=== PATIENT | male | born 1945 | race Caucasian/White ===

== ENCOUNTER 2022-11-21 19:37 | Emergency (ER) | payer MEDICARE, OTHER, SELFPAY ==
[2022-11-21 20:09] VITALS: BP 103/67; PULSE 59; RESP 14; TEMP 36.6; O2SAT 97; BMI 26.4
--- NOTE | 2022-11-21 20:30 | ED.GENADUL1 ---
Documented by User: KG Franklin 11/21/22 20:33 HPI - General Adult General Chief complaint: Skin/Abscess/Foreign Body Stated complaint: UPPER INJURY LEFT ARM Time Seen by Provider: 11/21/22 20:21 Source: patient Mode of arrival: walk-in History of Present Illness HPI narrative: patient is a pleasant 77-year-old male presents to the emergency department for a skin tear to the left posterior elbow. He and his are concerned he needed a tetanus update. They cannot remember when he would've had a tetanus update most recently. Patient's left elbow was pinned next to a feeder and he sustained a superficial skin tear/avulsion. He has no pain to the elbow and is able to move the arm with no difficulty. No bleeding at this time. No other associated injuries. Related Data Allergies Allergy/AdvReac Type Severity Reaction Status Date / Time No Known Drug Allergies Allergy Verified 11/21/22 20:09 Review of Systems ROS Constitutional Denies: fever or chills Ears, nose, mouth, and throat Denies: throat pain Cardiovascular Denies: chest pain Respiratory Denies: cough Gastrointestinal Denies: nausea or vomiting Integumentary/Breast Denies: rash Hematologic/Lymphatic Denies: easy bruising Exam Narrative Exam Narrative: Gen.: Awake, alert, in no distress Head: Normocephalic, atraumatic ENT: Moist mucous membranes Respiratory: No respiratory distress Extremities: Moves extremities equally, no bony tenderness of the left elbow with skin tear noted below. Psych: Normal mood and affect Neuro: No focal neuro deficit Skin: Warm, dry, superficial skin avulsion/skin tear to the left posterior elbow. No active bleeding. No deep laceration noted Constitutional Vital Signs, click to edit/add: Last Vital Signs Temp 97.8 F 11/21/22 20:09 Pulse 59 L 11/21/22 20:09 Resp 14 11/21/22 20:09 BP 103/67 11/21/22 20:09 Pulse Ox 97 11/21/22 20:09 O2 Del Method Room Air 11/21/22 20:19 Course Vital Signs Vital signs: Vital Signs Temperature 97.8 F 11/21/22 20:09 Pulse Rate 59 L 11/21/22 20:09 Respiratory Rate 14 11/21/22 20:09 Blood Pressure 103/67 11/21/22 20:09 Pulse Oximetry 97 08/01/23 20:09 Oxygen Delivery Method Room Air 11/21/22 20:09 Temperature 97.8 F 11/21/22 20:09 Pulse Rate 59 L 11/21/22 20:09 Respiratory Rate 14 11/21/22 20:09 Blood Pressure 103/67 11/21/22 20:09 Pulse Oximetry 97 11/21/22 20:09 Oxygen Delivery Method Room Air 11/21/22 20:19 Medical Decision Making MDM Narrative Medical decision making narrative: exam is consistent with skin tear, tetanus is updated and the area was dressed with bacitracin and dressing. Wound care instructions given for home.follow-up with PCP and return to the Emergency Room if symptoms change or worsen Medical Records Medical records reviewed: Yes I reviewed the patient's medical records Discharge Plan Discharge Chief Complaint: Skin/Abscess/Foreign Body Clinical Impression: Skin tear Patient Disposition: Home, Self-Care Time of Disposition Decision: 20:23 Condition: Good Mode of Transportation: Private Vehicle Instructions: Acute Wounds (ED) Stand Alone Forms: Portal Instructions Referrals: Licha Gomez MD [Primary Care Provider] - 1 week Discharge Date/Time: 11/21/22 20:47 Documented by User: Paige Woodard MD 11/21/22 23:15 HPI - General Adult General Chief complaint: Skin/Abscess/Foreign Body Stated complaint: UPPER INJURY LEFT ARM Time Seen by Provider: 11/21/22 20:21 Related Data Allergies Allergy/AdvReac Type Severity Reaction Status Date / Time No Known Drug Allergies Allergy Verified 11/21/22 20:09 Exam Constitutional Vital Signs, click to edit/add: Last Vital Signs Temp 97.8 F 11/21/22 20:09 Pulse 59 L 11/21/22 20:09 Resp 14 11/21/22 20:09 BP 103/67 11/21/22 20:09 Pulse Ox 97 11/21/22 20:09 O2 Del Method Room Air 11/21/22 20:19 Course Vital Signs Vital signs: Vital Signs Temperature 97.8 F 11/21/22 20:09 Pulse Rate 59 L 11/21/22 20:09 Respiratory Rate 14 11/21/22 20:09 Blood Pressure 103/67 11/21/22 20:09 Pulse Oximetry 97 11/21/22 20:09 Oxygen Delivery Method Room Air 11/21/22 20:09 Temperature 97.8 F 11/21/22 20:09 Pulse Rate 59 L 11/21/22 20:09 Respiratory Rate 14 11/21/22 20:09 Blood Pressure 103/67 11/21/22 20:09 Pulse Oximetry 97 11/21/22 20:09 Oxygen Delivery Method Room Air 11/21/22 20:19 Medical Decision Making MDM Narrative Medical decision making narrative: exam is consistent with skin tear, tetanus is updated and the area was dressed with bacitracin and dressing. Wound care instructions given for home.follow-up with PCP and return to the Emergency Room if symptoms change or worsen Attending physician attestation I have reviewed the mid-level documentation, agree with the documentation, medical decision making and treatment plan as outlined by the mid-level provider. Discharge Plan Discharge Chief Complaint: Skin/Abscess/Foreign Body Clinical Impression: Skin tear Patient Disposition: Home, Self-Care Time of Disposition Decision: 20:23 Condition: Good Mode of Transportation: Private Vehicle Instructions: Acute Wounds (ED) Stand Alone Forms: Portal Instructions Referrals: Licha Gomez MD [Primary Care Provider] - 1 week Discharge Date/Time: 11/21/22 20:47
[2022-11-21] MEDS: ADACEL DIPH,PERTUSS(ACELL),TET VAC/PF 0.5 ML ADULT SYRINGE IM (20:35)
[2022-11-21] MEDS: BACITRACIN 0.9 GM PACKET 1 PACKET TOPICAL (20:36)
== END 2022-11-21 20:47 | disposition home or self-care (01) ==
PROVIDERS: Emergency Provider Emergency Medicine; PCP Specialist
DX: S51.012A Laceration without foreign body of left elbow, initial encounter (principal); W23.0XXA Caught, crushed, jammed, or pinched between moving objects, initial encounter; Z23 Encounter for immunization
CPT/HCPCS: 90471; 90715; 99282

== ENCOUNTER 2023-01-13 06:38 | Outpatient (OUT) | payer MEDICARE, OTHER, SELFPAY ==
[2023-01-13 09:20] LABS: Prostate Specific Antigen Scrn 1.58 ng/mL (<=4.00)
== END 2023-01-13 06:39 | disposition home or self-care (01) ==
LOC: LAB 06:41
PROVIDERS: PCP Specialist; Visit Provider Urology
DX: N40.1 Benign prostatic hyperplasia with lower urinary tract symptoms (principal); R39.12 Poor urinary stream; R35.1 Nocturia; N32.0 Bladder-neck obstruction; Z80.42 Family history of malignant neoplasm of prostate
CPT/HCPCS: 36415; 84153; G0103

== ENCOUNTER 2023-03-19 13:47 | Outpatient (OUT) | payer MEDICARE, OTHER, SELFPAY ==
--- NOTE | 2023-03-19 13:56 | XR_ITS ---
The [address] [address] Patient Name: ENA VICK MRN: [id number] date: 1945 Sex: M Assigned Patient Location: RAD Current Patient Location: RAD Accession/Order Number: [id number] Exam Date: 03/19/2023 14:05 Report Date: 03/19/2023 18:40 At the request of: ANDREA BATEMAN Procedure: XR hip RT min 2V EXAM: Right hip HISTORY: . Right Hip Pain, Low Back Pain . COMPARISON: None. TECHNIQUE: 2 views FINDINGS: No fracture or dislocation of the right hip is noted. Hip joint is unremarkable. Surrounding soft tissues are unremarkable. XR/XR hip RT min 2V IMPRESSION: Negative right hip. Electronically authenticated by: MANUEL RUDOLPH Date: 03/19/2023 18:40
--- NOTE | 2023-03-19 13:56 | XR_ITS ---
[address] [address] Patient Name: ENA VICK MRN: [id number] date: 1945 Sex: M Assigned Patient Location: [facility] Current Patient Location: Accession/Order Number: [id number] Exam Date: 03/19/2023 14:05 Report Date: 03/20/2023 22:11 At the request of: ANDREA BATEMAN Procedure: XR lumbar spine 6V w bending Exam: Radiographs: XR lumbar spine 6V w bending Reason for exam: Low Back Pain, Right Hip Pain Comparison: None XR/XR lumbar spine 6V w bending IMPRESSION: L2 superior endplate compression fracture with mild height loss is likely chronic. Grade 1 retrolisthesis of L4 on L5. Minimal grade 1 retrolisthesis of L1 on L2 and L2 on L3. Multilevel disc space narrowing. No instability on flexion/extension views. Degenerative changes in the lumbar spine with multilevel disc space narrowing. Remainder unremarkable. Electronically authenticated by: BARBARA ARMSTRONG Date: 03/20/2023 22:11
== END 2023-03-19 13:48 | disposition home or self-care (01) ==
LOC: RAD 13:49
PROVIDERS: PCP Nurse Practitioner; Visit Provider Nurse Practitioner
DX: M54.50 Low back pain, unspecified (principal); M25.551 Pain in right hip; M51.36 Other intervertebral disc degeneration, lumbar region
CPT/HCPCS: 72114; 73502

== ENCOUNTER 2023-03-23 10:16 | Outpatient (RCR) | payer MEDICARE, OTHER, SELFPAY | END 2023-04-17 11:30 | disposition home or self-care (01) | LOC: PT 10:16 | PROVIDERS: PCP Nurse Practitioner; Visit Provider Nurse Practitioner | DX: M48.061 Spinal stenosis, lumbar region without neurogenic claudication (principal); M54.50 Low back pain, unspecified; M25.551 Pain in right hip | CPT/HCPCS: 97010; 97035; 97110; 97112; 97140; 97161; G0283 ==

== ENCOUNTER 2024-01-16 10:48 | Outpatient (OUT) | payer MEDICARE, OTHER, SELFPAY ==
--- OUTSIDE RECORDS SUMMARY | 2024-01-16 11:05 | XMS_ITS | CCD ---
Author Organization [facility] Care Team Providers Care [place] Department Head Name Role Phone Criss Huizar Unavailable NydiaMauricio novak Unavailable FLANAGAN ., DR FREEMAN Admitting Unavailable FLANAGAN ., DR FREEMAN Attending Unavailable PATRICIO ., DR KEEGAN Jennings Primary Care Unavailable FLANAGAN ., DR FREEMAN Consulting Unavailable PATRICIO ., DR KEEGAN Jennings Admitting Unavailable PATRICIO ., DR KEEGAN Jennings Attending Unavailable PATRICIO ., DR KEEGAN Jennings Primary Care Unavailable PATRICIO ., DR KEEGAN Jennings Consulting Unavailable PATRICIO ., DR KEEGAN Jennings Admitting Unavailable PATRICIO ., DR KEEGAN Jennings Attending Unavailable PATRICIO ., DR KEEGAN Jennings Primary Care Unavailable PATRICIO ., DR KEEGAN Jennings Consulting Unavailable PATRICIO ., DR KEEGAN Jennings Primary Care Unavailable GUILHERME HOBSON Admitting Unavailable GUILHERME HOBSON Attending Unavailable GUILHERME HOBSON Consulting Unavailable SHE KING Consulting Unavailable TARA CROCKETT Consulting Unavailable AA, MAICO Consulting Unavailable PATRICIO ., DR KEEGAN Jennings Admitting Unavailable PATRICIO ., DR KEEGAN Jennings Attending Unavailable PATRICIO ., DR KEEGAN Jennings Primary Care Unavailable PATRICIO ., DR KEEGAN Jennings Consulting Unavailable PATRICIO ., DR KEEGAN Jennings Admitting Unavailable PATRICIO ., DR KEEGAN Jennings Attending Unavailable PATRICIO ., DR KEEGAN Jennings Primary Care Unavailable PATRICIO ., DR KEEGAN Jennings Consulting Unavailable NIYA DUGAN Attending Unavailable NIYA DUGAN Attending Unavailable Yesenia Kwong Attending Unavailable Yesenia Kwong Attending Unavailable Medications Current Medications Medication Drug Class(es) Dates Sig (Normalized) Sig (Original) Aluminum Hydroxide / magnesium carbonate (1 source) Gaviscon Active atorvastatin 40 mg oral tablet (3 sources) HMG-CoA Reductase Inhibitor take 1 tablet by mouth every twenty-four hours Lipitor 40 MG 1 tablet Orally Once a day Active Atorvastatin Adam cium Not-Taking Famotidine (1 source) Histamine-2 Receptor Antagonist Famotidine Active Ibuprofen (2 sources) Nonsteroidal Anti-inflammatory Drug Ibuprofen Active Lipo-Flavonoid Plus (2 sources) Lipo-Flavonoid P gerardo Active Melatonin (2 sources) Melatonin Active omeprazole 40 mg delayed release oral capsule (1 source) Proton Pump Inhibitor take 1 capsule by mouth once daily Omeprazole 40 MG 1 capsule 30 minutes before morning meal Orally Once a day Active Probiotic (2 sources) Probiotic Active Problems Active Problems Problem Classification Problem Date Documented Date Episodic/Chronic Abdominal hernia (2 sources) Hiatal hernia; Translations: [Diaphragmatic hernia without obstruction or gangrene] Onset: 10-27-19 Resolved : 10-27-19 Episodic Disorders of lipid metabolism (1 source) Pure hypercholesterolemia, unspecified; Translations: [PURE HYPERCHOLESTEROLEMIA UNSPEC] Onset: 11-03-19 Chronic Esophageal disorders (4 sources) Gastroesophageal reflux disease; Translations: [Gastro-esophageal reflux disease without esophagitis] Onset: 10-27-19 Resolved : 10-27-19 Chronic Gastritis and duodenitis (1 source) Atrophic gastritis; Translations: [Unspecified chronic gastritis without bleeding] Chronic Hyperplasia of prostate (5 sources) Benign prostatic hyperplasia with lower urinary tract symptoms; Translations: [Benign prostatic hyperplasia without lower urinary tract symptoms] Onset: 11-03-19 Chronic Other diseases of bladder and urethra (1 source) Bladder-neck obstruction; Translations: [BLADDER-NECK OBSTRUCTION] Onset: 01-09-20 Chronic Other gastrointestinal disorders (2 sources) Diarrhea; Translations: [Diarrhea, unspecified] Episodic Other gastrointestinal disorders (2 sources) Altered bowel function; Translations: [Change in bowel habit] Episodic Other gastrointestinal disorders (2 sources) Incontinence of feces; Translations: [Full incontinence of feces] Episodic Unclassified (2 sources) Patient encounter status; Translations: [Encounter for health counseling related to travel] Unclassified (1 source) CONTACT W/AND (SUSP) EXPOS COVID-19; Translations: [CONTACT W/AND (SUSP) EXPOS COVID-19] Onset: 11-03-19 Past or Other Problems Problem Classification Problem Date Documented Da te Episodic/Chronic Bacterial infection; unspecified site (1 source) Other specified bacterial agents as the cause of diseases classified elsewhere; Translations: [OTH SPEC BACTERIAL DZ CLASS ELSW] Onset: 11-28-2021 Episodic Deficiency and other anemia (1 source) Anemia, unspecified; Translations: [ANEMIA UNSPECIFIED] Onset: 11-02-2021 Episodic Genitourinary symptoms and ill-defined conditions (2 sources) Poor urinary stream; Translations: [Nocturia] Onset: 01-08-2022 Episodic Intestinal infection (4 sources) Enterocolitis due to Clostridium difficile, not specified as recurrent; Translations: [ENTROCOLIT DT C DIF NOT SPEC REC] Onset: 11-02-2021 Episodic Nonspecific chest pain (1 source) Other chest pain Onset: 10-26-2021 Resolved: 10-26-2021 Episodic Other aftercare (1 source) Other termite exterminator (current) drug therapy; Translations: [OTH AUTOMATION CONTROL INTEGRATOR CURRENT DRUG THERAPY] Onset: 11-02-2021 Episodic Other gastrointestinal disorders (3 sources) Diarrhea, unspecified; Translations: [DIARRHEA UNSPECIFIED] Onset: 10-28-2021 Episodic Other infections; including parasitic (4 sources) Other infectious disease; Translations: [OTHER INFECTIOUS DISEASE] Onset: 11-23-2021 Episodic Screening and history of mental health and substance abuse codes (1 source) Personal history of nicotine dependence; Translations: [PERSONAL HISTORY OF NICOTINE DEPEND] Onset: 11-02-2021 Episodic Unclassified (1 source) Encounter for health counseling related to travel Onset: 10-05-2021 Resolved: 10-05-2021 Results Test Name Value Interpretation Reference Range Facility Discharge Note - PTon 2022 Discharge Note - PT [id number]#1.00T IFF [facility] Plan of Care - PT/OT/Speecho n 03-26-2023 Plan of Care - PT/OT/Speech [id number]#1.00T IFF [facility] Ambulatory Visit Summaryon 1 05-19-2022 Ambulatory Visit Summary NAVATE Natalio :1945 Visit Date:03/19/2023 Ambulatory Visit Instructions Your Care Team Attending Physician - Yesenia Juarez Primary Care Physician - Yesenia Juarez This Is Your Medications List atorvastatin (atorvastatin 20 mg Tab) omeprazole (omeprazole 40 mg Cap-DR) Contact prescribing physician if questions or concerns aluminum hydroxide-magnesium trisilicate (Gaviscon) ibuprofen melatonin multivitamin (Lipoflavonoid) Procedures Performed Transurethral incision of male bladder neck (08/31/2016), Cystoscopy (08/05/2015), TRUS - Transrectal ultrasonography (07/29/2013), Cystoscopy (05/26/2009), TURP - Transurethral resection of prostate (06/21/2005), Cystoscopy (05/24/2004), TRUS - Transrectal ultrasonography (03/23/2004), Colonoscopy, History of hernia repair. Discharge Vitals Temperature (Oral) 37.8 ?C Heart Rate (Peripheral) 67 Respiratory Rate 16 Blood Pressure 152/88 Height 175 cm Height 69 in Weight 80 kg Weight 176 lb BMI 26.12 What to do next Scheduled Follow-Up Appointments Sunday 8:30 AM EDT With: NIYA DUGAN PA-C Where: [facility] Family Medicine Office/Clini c Noteon 03-19-2023 Family Medicine Office/Clinic Note HPI Staff Pt is a 77 yo male presenting for right hip pain today. Pain characteristics: Right hip pain Pain location: R hip Intensity:_ Onset: on and off, getting worse. Medication used: OTC pain meds. Opioids prescribed: Medication agreement UTD: _ Urine drug screen performed:_ History of Present Illness pt presents today with right hip, lower right back pain with pain down right leg Review of Systems PHQ Score Initial Depression Screen Score: 0 SCORE ROS - Provider Constitutional: no fever, no chills, no sweats, no fatigue Respiratory: no shortness of breath, no cough, no orthopnea, no wheezing. Cardiovascular: no chest pain, no palpitations, no edema. Neurologic: no headache, no dizziness, no numbness, no weakness. right low back hamilton that shoots pain around hip and down right leg Physical Exam Vitals & Measurements T: 37.8 ?C(Oral) HR: 67(Peripheral) RR: 16 BP: 152/88 SpO2: 98% HT: 69 in HT: 175 cm WT: 80 kg WT: 176 lb BMI: 26.12 General: alert, no acute distress ENMT: oral mucosa moist, no pharyngeal erythema or exudate Cardiovascular: regular rate and rhythm, normal peripheral perfusion Respiratory: Lungs CTA, respirations non labored Extremities: no deformity, no trauma Neurological: oriented x 4, LOC appropriate for age, CN II-XII intact, motor strength equal & normal bilaterally, speech normal Assessment/Plan 1. Right hip pain (M25.551: Pain in right hip) pt states he has had some mild hip pain for a few moths but over the weekend the pain has worsened which is causing him to limp. will order hip and lower back x ray. will order medrol dose pack and anti-inflammatory. if no improvement in 2 weeks pt will notify provider for referral to PT. pt also encouraged to use heat to the area when it is severe. will notify pt of xray results. order provided for TBH. all questions answered. RTC as needed Ordered: meloxicam, 7.5 mg = 1 tab(s), Oral, Daily, # 30 tab(s), Refills(s) 0, Pharmacy: [facility]/pharmacy #[id number], 175, cm, 03/19/23 12:49:00 EST, Height/Length Dosing, 80, kg, 03/19/23 12:49:00 EST, Weight Dosing methylPREDNISolone, = 1 packet(s), Oral, As Directed, as directed on package labeling, X 6 day(s), # 21 tab(s), Refills(s) 0, Pharmacy: [facility]/pharmacy #[id number], 175, cm, 03/19/23 12:49:00 EST, Height/Length Dosing, 80, kg, 03/19/23 12:49:00 EST, Weight Dosing 2. Back pain with right-sided sciatica (M54.31: Sciatica, right side) pt having lower right back pain that radiates around the hip and down front of right leg. Ordered: meloxicam, 7.5 mg = 1 tab(s), Oral, Daily, # 30 tab(s), Refills(s) 0, Pharmacy: [facility]/pharmacy #[id number], 175, cm, 03/19/23 12:49:00 EST, Height/Length Dosing, 80, kg, 03/19/23 12:49:00 EST, Weight Dosing methylPREDNISolone, = 1 packet(s), Oral, As Directed, as directed on package labeling, X 6 day(s), # 21 tab(s), Refills(s) 0, [id number] 175, cm, 03/19/23 12:49:00 EST, Height/Length Dosing, 80, kg, 03/19/23 12:49:00 EST, Weight Dosing 3. BMI 26.0-26.9,adult (Z68.26: Body mass index [BMI] 26.0-26.9, adult) BMI education complete Ordered: triamcinolone topical, 1 rob, Topical, TID, 30 gram, [facility](s) 0[id number], cm, 02/05/23 10:42:00 EDT, Height/Length Dosing, 82.3, kg, 02/05/23 10:42:00 EDT, Weight Dosing Orders: atorvastatin, 20 mg = 1 tab(s), Oral, Daily, # 90 tab(s), Refills(s) 1, [id number] 175, cm, 02/05/23 10:42:00 EDT, Height/Length Dosing, 82.3, kg, 02/05/23 10:42:00 EDT, Weight Dosing omeprazole, 40 mg = 1 cap(s), Oral, Daily, X 90 day(s), # 90 cap(s), Refills(s) 3, [id number] 175, cm, 02/05/23 10:42:00 EDT, Height/Length Dosing, 82.3, kg, 02/05/23 10:42:00 EDT, Weight Dosing Follow-up No qualifying data available Problem List/Past Medical History Ongoing Abdominal hernia Back pain with right-sided sciatica Bladder neck obstruction BMI 26.0-26.9,adult BPH with urinary obstruction Contact dermatitis Family history of prostate cancer Gastroesophageal reflux Hematuria Nocturia Organic impotence Pain of back and right lower extremity Prostate nodule Right hip pain Weak urine stream Historical No qualifying data Procedure/Surgical History Transurethral incision of male bladder neck (08/31/2016), Cystoscopy (08/05/2015), TRUS - Transrectal ultrasonography (07/29/2013), Cystoscopy (05/26/2009), TURP - Transurethral resection of prostate (06/21/2005), Cystoscopy (05/24/2004), TRUS - Transrectal ultrasonography (03/23/2004), Colonoscopy, History of hernia repair. Medications atorvastatin 20 mg Tab, 20 mg= 1 tab(s), Oral, Daily, 1 refills Gaviscon, Chewed, QIDPCHS ibuprofen Lipoflavonoid, Oral, Daily Medrol 4 mg Tab, 1 packet(s), Oral, As Directed melatonin, Once a day (at bedtime) meloxicam 7.5 mg Tab, 7.5 mg= 1 tab(s), Oral, Daily omeprazole 40 mg Cap-DR, 40 mg= 1 cap(s), Oral, Daily, 3 refills Allergies No Known Allergies Social History Tobacco F (more content not included)... Normal [facility] Comment on above: Result Comment: Elec tronically Signed By: Yesenia Juarez\.br\Date and Time Signed: 03/19/23 13:10 EST Ambulatory Visit Summaryon 1 Ambulatory Visit Summary TE CURTIS Natalio :1945 Visit Date:02/05/2023 Ambulatory Visit Instructions Your Diagnosis Contact dermatitis BMI 26.0-26.9,adult Non-smoker Your Care Team Attending Physician - Yesenia Juarez Primary Care Physician - Yesenia Juarez This Is Your Medications List aluminum hydroxide-magnesium trisilicate (Gaviscon) atorvastatin (atorvastatin 20 mg Tab) ibuprofen melatonin multivitamin (Lipoflavonoid) omeprazole (omeprazole 40 mg Cap-DR) triamcinolone topical (triamcinolone Top 0.1% Crm 15 gram) Procedures Performed Transurethral incision of male bladder neck (08/31/2016), Cystoscopy (08/05/2015), TRUS - Transrectal ultrasonography (07/29/2013), Cystoscopy (05/26/2009), TURP - Transurethral resection of prostate (06/21/2005), Cystoscopy (05/24/2004), TRUS - Transrectal ultrasonography (03/23/2004), Colonoscopy, History of hernia repair. Discharge Vitals Heart Rate (Peripheral) 62 Respiratory Rate 18 Blood Pressure 126/78 Height 175 cm Height 69 in Weight 82.3 kg Weight 181.06 lb BMI 26.87 What to do next Scheduled Follow-Up Appointments Sunday 8:30 AM EDT With: RITCHIE RODRIGUEZ, NIYA Jennings Where: [facility] [place] 02-05-2023 Consent [id number] IFF [facility] Family Medicine Office/Clini c Noteon 02-05-2023 Family Medicine Office/Clinic Note HPI Staff Te is a 77 year old male presenting with rash Duration: Location: bilateral upper arms and back Description: red/dry, seems worse after shower Rash symptoms: c/o itching denies burning/pain OTC: Has used rubbing alcohol a few times History of Present Illness pt presents today with dry scaly rash in upper arms shoulder and upper back Review of Systems PHQ Score Initial Depression Screen Score: 0 ROS - Provider Constitutional: no fever, no chills, no sweats, no fatigue Respiratory: no shortness of breath, no cough, no orthopnea, no wheezing. Cardiovascular: no chest pain, no palpitations, no edema. Neurologic: no headache, no dizziness, no numbness, no weakness. skin: rash on upper boday for 2 weeks Physical Exam Vitals & Measurements HR: 62(Peripheral) RR: 18 BP: 126/78 SpO2: 96% HT: 69 in HT: 175 cm WT: 82.3 kg WT: 181.06 lb BMI: 26.87 General: alert, no acute distress ENMT: oral mucosa moist, no pharyngeal erythema or exudate Cardiovascular: regular rate and rhythm, normal peripheral perfusion Respiratory: Lungs CTA, respirations non labored Extremities: no deformity, no trauma Neurological: oriented x 4, LOC appropriate for age, CN II-XII intact, motor strength equal & normal bilaterally, speech normal red, scaly rash upper arms, shoulders and upper back Assessment/Plan 1. Contact dermatitis (L25.9: Unspecified contact dermatitis, unspecified cause) pt has several dry, scaly flaky areas on upper arms, shoulders and back. pt states his changed laundry detergent a few weeks ago and this has been going on for about 2 weeks. it is itchy. will give kenalog injection in office today. will also order steroid cream. all questions answered. RTC as needed Ordered: triamcinolone, 40 mg = 1 mL, Injection, IntraMuscular, Once, Stop date 02/05/23 12:12:00 EDT, Routine, Start date 02/05/23 12:12:00 EDT, 02/05/23 12:12:00 EDT triamcinolone topical, 1 rob, Topical, TID, 30 gram, Refill(s) 0, [id number], 175, cm, 02/05/23 10:42:00 EDT, Height/Length Dosing, 82.3, kg, 02/05/23 10:42:00 EDT, Weight Dosing 2. BMI 26.0-26.9,adult (Z68.26: Body mass index [BMI] 26.0-26.9, adult) BMI education complete Ordered: triamcinolone, 40 mg = 1 mL, Injection, IntraMuscular, Once, Stop date 02/05/23 12:12:00 EDT, Routine, Start date 02/05/23 12:12:00 EDT, 02/05/23 12:12:00 EDT triamcinolone topical, 1 rob, Topical, TID, 30 gram, Refill(s) 0, [facility]/pharmacy #[id number], 175, cm, 02/05/23 10:42:00 EDT, Height/Length Dosing, 82.3, kg, 02/05/23 10:42:00 EDT, Weight Dosing 3. Non-smoker (Z78.9: Other specified health status) continue not smoking Ordered: triamcinolone, 40 mg = 1 mL, Injection, IntraMuscular, Once, Stop date 02/05/23 12:12:00 EDT, Routine, Start date 02/05/23 12:12:00 EDT, 02/05/23 12:12:00 EDT triamcinolone topical, 1 rob, Topical, TID, 30 gram, Refill(s) 0, [id number], 175, cm, 02/05/23 10:42:00 EDT, Height/Length Dosing, 82.3, kg, 02/05/23 10:42:00 EDT, Weight Dosing Follow-up No qualifying data available Problem List/Past Medical History Ongoing Abdominal hernia Bladder neck obstruction BPH with urinary obstruction Contact dermatitis Family history of prostate cancer Gastroesophageal reflux Hematuria Nocturia Organic impotence Prostate nodule Weak urine stream Historical No qualifying data Procedure/Surgical History Transurethral incision of male bladder neck (08/31/2016), Cystoscopy (08/05/2015), TRUS - Transrectal ultrasonography (07/29/2013), Cystoscopy (05/26/2009), TURP - Transurethral resection of prostate (06/21/2005), Cystoscopy (05/24/2004), TRUS - Transrectal ultrasonography (03/23/2004), Colonoscopy, History of hernia repair. Medications atorvastatin 20 mg Tab, 20 mg= 1 tab(s), Oral, Daily, 1 refills Gaviscon, Chewed, QIDPCHS ibuprofen Lipoflavonoid, Oral, Daily melatonin, Once a day (at bedtime) omeprazole 40 mg Cap-DR, 40 mg= 1 cap(s), Oral, Daily, 3 refills triamcinolone Top 0.1% Crm 15 gram, 1 rob, Topical, TID Allergies No Known Allergies Social History Tobacco Former smoker, quit more than 30 days ago Tobacco Use:. Never Smokeless Tobacco Use:. Household tobacco concerns: No. Yes, 02/05/2023 Family History Prostate cancer: Brother. Immunizations Vaccine Date Status Comments influenza virus vaccine, inactivated 03/03/2022 Recorded SARS-CoV-2 (COVID-19) mRNA BNT-162b2 vax 04/19/2021 Recorded 2023-01-16: [id number] influenza virus vaccine, inactivated 03/14/2021 Recorded SARS-CoV-2 (COVID-19) mRNA BNT-162b2 vax 06/25/2020 Recorded SARS-CoV-2 (COVID-19) mRNA BNT-162b2 vax 06/04/2020 Recorded SARS-CoV-2 (COVID-19) mRNA BNT-162b2 vax 2020 Recorded pt does not have his card today and can not remember the dates of vaccine pneumococcal 23-valent vaccine 02/11/2020 Recorded influenza virus vaccine, inactivated 02/11/2020 Recorded influenza virus vaccine, inactivated 01/29/2019 Recorded influenza virus vaccine, in (more content not included)... Normal [facility] Comment on above: Result Comment: Elec tronically Signed By: Yesenia Juarez\.br\Date and Time Signed: 02/05/23 12:59 EDT [place] 01-17-2023 Screens [id number]#1.00CD :127 [facility] Ambulatory Visit Summaryon 0 01-16-2023 Ambulatory Visit Summary TE CURTIS :1945 Visit Date:01/16/2023 Ambulatory Visit Instructions Your Diagnosis BPH with urinary obstruction Weak urine stream Nocturia Bladder neck obstruction Family history of prostate cancer Tests Performed Urnls Dip Stick Auto w/o Microscopy POC [id number] Your Care Team Attending Physician - NIYA DUGAN PA-C Primary Care Physician - Yesenia Juarez This Is Your Medications List Contact prescribing physician if questions or concerns aluminum hydroxide-magnesium trisilicate (Gaviscon) atorvastatin (atorvastatin 20 mg Tab) ibuprofen melatonin multivitamin (Lipoflavonoid) omeprazole (omeprazole 40 mg Cap-DR) Procedures Performed Transurethral incision of male bladder neck (08/31/2016), Cystoscopy (08/05/2015), TRUS - Transrectal ultrasonography (07/29/2013), Cystoscopy (05/26/2009), TURP - Transurethral resection of prostate (06/21/2005), Cystoscopy (05/24/2004), TRUS - Transrectal ultrasonography (03/23/2004), Colonoscopy, History of hernia repair. Discharge Vitals Heart Rate (Peripheral) 68 Respiratory Rate 16 Blood Pressure 130/76 Height 175 cm Height 69 in Weight 81.8 kg Weight 179.96 lb BMI 26.71 What to do next Scheduled Follow-Up Appointments Sunday 8:30 AM EDT With: NIYA DUGAN PA-C Where: [facility] Patient Educationon 01-17-20 Patient Education Urology Benign Prostatic Hyperplasia Benign prostatic hyperplasia (BPH) is an enlarged prostate gland that is caused by the normal aging process. The prostate may get bigger as a man gets older. The condition is not caused by cancer. The prostate is a walnut-sized gland that is involved in the production of semen. It is located in front of the rectum and below the bladder. The bladder stores urine. The urethra carries stored urine out of the body. An enlarged prostate can press on the urethra. This can make it harder to pass urine. The buildup of urine in the bladder can cause infection. Back pressure and infection may progress to bladder damage and kidney (renal) failure. What are the causes? This condition is part of the normal aging process. However, not all men develop problems from this condition. If the prostate enlarges away from the urethra, urine flow will not be blocked. If it enlarges toward the urethra and compresses it, there will be problems passing urine. What increases the risk? This condition is more likely to develop in men older than 50 years. What are the signs or symptoms? Symptoms of this condition include: ? Getting up often during the night to urinate. ? Needing to urinate frequently during the day. ? Difficulty starting urine flow. ? Decrease in size and strength of your urine stream. ? Leaking (dribbling) after urinating. ? Inability to pass urine. This needs immediate treatment. ? Inability to completely empty your bladder. ? Pain when you pass urine. This is more common if there is also an infection. ? Urinary tract infection (UTI). How is this diagnosed? This condition is diagnosed based on your medical history, a physical exam, and your symptoms. Tests will also be done, such as: ? A post-void bladder scan. This measures any amount of urine that may remain in your bladder after you finish urinating. ? A digital rectal exam. In a rectal exam, your health care provider checks your prostate by putting a lubricated, gloved finger into your rectum to feel the back of your prostate gland. This exam detects the size of your gland and any abnormal lumps or growths. ? An exam of your urine (urinalysis). ? A prostate specific antigen (PSA) screening. This is a blood test used to screen for prostate cancer. ? An ultrasound. This test uses sound waves to electronically produce a picture of your prostate gland. Your health care provider may refer you to a specialist in kidney and prostate diseases (urologist). How is this treated? Once symptoms begin, your health care provider will monitor your condition (active surveillance or watchful waiting). Treatment for this condition will depend on the severity of your condition. Treatment may include: ? Observation and yearly exams. This may be the only treatment needed if your condition and symptoms are mild. ? Medicines to relieve your symptoms, including: ? Medicines to shrink the prostate. ? Medicines to relax the muscle of the prostate. ? Surgery in severe cases. Surgery may include: ? Prostatectomy. In this procedure, the prostate tissue is removed completely through an open incision or with a laparoscope or robotics. ? Transurethral resection of the prostate (TURP). In this procedure, a tool is inserted through the opening at the tip of the penis (urethra). It is used to cut away tissue of the inner core of the prostate. The pieces are removed through the same opening of the penis. This removes the blockage. ? Transurethral incision (TUIP). In this procedure, small cuts are made in the prostate. This lessens the prostate's pressure on the urethra. ? Transurethral microwave thermotherapy (TUMT). This procedure uses microwaves to create heat. The heat destroys and removes a small amount of prostate tissue. ? Transurethral needle ablation (TUNA). This procedure uses radio frequencies to destroy and remove a small amount of prostate tissue. ? Interstitial laser coagulation (ILC). This procedure uses a laser to destroy and remove a small amount of prostate tissue. ? Transurethral electrovaporization (TUVP). This procedure uses electrodes to destroy and remove a small amount of prostate tissue. ? Prostatic urethral lift. This procedure inserts an implant to push the lobes of the prostate away from the urethra. Follow these instructions at home: ? Take [id number] and prescription medicines only as told by your health care provider. ? Monitor your symptoms for any changes. Contact your health care provider with any changes. ? Avoid drinking large amounts of liquid before going to bed or out in public. ? Avoid or reduce how much caffeine or alcohol you drink. ? Give yourself time when you urinate. ? Keep all follow-up visits. This is important. Contact a health care provider if: ? You have unexplained back pain. ? Your symptoms do not get better with treatment. ? You develop side effects from the medicine (more content not included)... Normal [facility] Urology Office/Clinic Noteon 01-16-2023 Urology Office/Clinic Note Chief Complaint 6m PSA HPI Staff PRW pt 77 yo male here for 1 yr f/u with PSA. Previous Dx: BPH with obstruction, weak urine stream, nocturia, bladder neck obstruction, family hx of prostate ca. (Brother) Current PSA done 06/27/22 is 1.69. Previous PSA done 01/04/22 was 1.33. *No Urology Medications Still having weak stream, mostly at night with mild hesitancy. Occasionally gets up 0-2x/night. Denies pain/burning and visible blood in urine. IPSS 10.5 History of Present Illness staff HPI reviewed and agree. Review of Systems PHQ Score Initial Depression Screen Score: 0 no fever, chills, malaise, myalgia. no rash/lesions. no chest pain, palpitations, or SOB. no abdominal pain, nausea, vomiting. no unilateral calf swelling, redness, pain Physical Exam Vitals & Measurements HR: 68(Peripheral) RR: 16 BP: 130/76 HT: 69 in HT: 175 cm WT: 81.8 kg WT: 179.96 lb BMI: 26.71 General: nontoxic, NAD Mouth: moist mucosa Lungs: normal respiratory effort Cardio: regular rate, good distal perfusion Abdomen: nondistended, no suprapubic distention or tenderness, no CVA tenderness Neurologic: Grossly normal Skin: No rashes or suspicious lesions Assessment/Plan 1. BPH with urinary obstruction (N40.1: Benign prostatic hyperplasia with lower urinary tract symptoms) Pt is currently taking no bladder/prostate medication and is mostly satisfied with overall symptom control. No indication for treatment at this time. Continue to monitor. 2. Weak urine stream (R39.12: Poor urinary stream) Weak stream w/ hesitancy at night. Advised pt that this likely from his bladder neck contracture. Advised pt that if this becomes too bothersome, we could address. 3. Nocturia (R35.1: Nocturia) 0-2x/night. Not bothersome. falls right back asleep. 4. 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 Discussed the risks and benefits of getting a repeat TUIBC. Advised pt that if this sx is not interfering with his life, there is no need to address at this time. Pt wishes to hold off and continue to monitor. 5. Family history of prostate cancer (Z80.42: Family history of malignant neoplasm of prostate) Brother Current PSA done 06/27/22 is 1.69. Previous PSA done 01/04/22 was 1.33. Educated pt on the results of his PSA, great PSA considering fam hx and pt's age. Pt prefers to continue monitoring. -Will order PSA. Follow up in 1 yr w/PSA. All questions/concerns were discussed. Pt to call the office if he encounters any issues prior. Pt acknowledges understanding. Follow-up With When Contact Information RITCHIE RODRIGUEZ, NIYA Jennings, URL In 1 year [address] [place] [address] Additional Instructions: w/PSA w/PRW Patient Education Benign Prostatic Hyperplasia I, Cristine Smith, personally scribed for Niya Dugan PA-C on 01/16/2023 13:24:27. . Documentation recorded by the scribindigo Smith accurately reflects the services(s) I performed and decisions made by me. Authenticated by Niya Dugan PA-C on 01/16/2023 13:30:21. Problem List/Past Medical History Ongoing Abdominal hernia Bladder neck obstruction BPH with urinary obstruction Family history of prostate cancer Gastroesophageal reflux Hematuria Nocturia Organic impotence Prostate nodule Weak urine stream Historical No qualifying data Procedure/Surgical History Transurethral incision of male bladder neck (08/31/2016), Cystoscopy (08/05/2015), TRUS - Transrectal ultrasonography (07/29/2013), Cystoscopy (05/26/2009), TURP - Transurethral resection of prostate (06/21/2005), Cystoscopy (05/24/2004), TRUS - Transrectal ultrasonography (03/23/2004), Colonoscopy, History of hernia repair. Medications atorvastatin 20 mg Tab, 20 mg= 1 tab(s), Oral, Daily, 1 refills Gaviscon, Chewed, QIDPCHS ibuprofen Lipoflavonoid, Oral, Daily melatonin, Once a day (at bedtime) omeprazole 40 mg Cap-DR, 40 mg= 1 cap(s), Oral, Daily, 3 refills Allergies No Known Allergies Social History Tobacco Former smoker, quit more than 30 days ago Tobacco Use:. Never Smokeless Tobacco Use:. Household tobacco concerns: No. Yes, 01/16/2023 Family History Prostate cancer: Brother. Immunizations Vaccine Date Status Comments influenza virus vaccine, inactivated 03/03/2022 Recorded SARS-CoV-2 (COVID-19) mRNA BNT-162b2 vax 04/19/2021 Recorded 2023-01-16: [id number] influenza virus vaccine, inactivated 03/14/2021 Recorded SARS-CoV-2 (COVID-19) mRNA BNT-162b2 vax 06/25/2020 Recorded SARS-CoV-2 (COVID-19) mRNA BNT-162b2 vax 06/04/2020 Recorded SARS-CoV-2 (COVID-19) mRNA BNT-162b2 vax 2020 Recorded pt does not have his card today and can not remember the dates of vaccine pneumococcal 23-valent vaccine 02/11/2020 Recorded influenza virus vaccine, inactivated 02/11/2020 Recorded influenza virus vaccine, inactivated 01/29/2019 Recorded influenza virus vaccin (more content not included)... Normal [facility] Comment on above: Result Comment: Elec tronically Signed By: NIYA DUGAN PA-C\.br\Date and Time Signed: 01/16/23 13:30 EDT\.br\Electronically Co-Signed By: Cristine Smith\.br\Date and Time Co-Signed: 01/16/23 13:24 EDT Lab Reportson 01-15-2023 Lab Reports [id number] D:[address] [facility] CBC AUTO DIFFon 06-27-2022 BASO # 0.0 103/ul Normal 0.0-0.1 [facility] Comment on above: Performed By: #### H FPFCBC #### [facility] [address] [address] [address] Johan Rosenberg Basophils/100 WBC (Bld) 0.4 % Normal 0.2-2.0 [facility] Comment on above: Performed By: #### H FPFCBC #### [facility] [address] [place] [address] Dr. Johan Rosenberg EO # 0.3 103/ul Normal 0.0-0.7 [facility] Comment on above: Performed By: #### H FPFCBC #### [facility] [address] [place] [address] Dr. Johan Rosenberg Eosinophils/100 WBC (Bld) 5.0 % Normal 0.9-7.0 [facility] Comment on above: Performed By: #### H FPFCBC #### [facility] [address] [place] [address] Dr. Johan Rosenberg Erythrocyte distribution width (RBC) [Ratio] 15.4 % Critically high 11.0-15.0 [facility] Comment on above: Performed By: #### H FPFCBC #### [facility] [address] [place] [address] Dr. Johan Rosenberg Hematocrit (Bld) [Volume fraction] 40.3 % Critically low 42.0-54.0 [facility] Comment on above: Performed By: #### H FPFCBC #### [facility] [address] [place] [address] Dr. Johan Rosenberg Hemoglobin (Bld) [Mass/Vol] 12.8 g/dL Critically low 14.0-18.0 [facility] Comment on above: Performed By: #### H FPFCBC #### [facility] [address] [place] [address] Dr. Johan Rosenberg IG # 0.01 10e3/ul Normal 0.00-0.03 [facility] Comment on above: Performed By: #### H FPFCBC #### [facility] [address] [place] [address] Dr. Johan Rosenberg IG % 0.2 % Normal 0.0-0.5 [facility] Comment on above: Performed By: #### H FPFCBC #### [facility] [address] [place] [address] Dr. Johan Rosenberg LYMPH # 1.5 103/ul Normal 1.2-3.8 [facility] Comment on above: Performed By: #### H FPFCBC #### [facility] [address] [address] [address] Johan Rosenberg Lymphocytes/100 WBC (Bld) 28.0 % Normal 20.5-60.0 [facility] Comment on above: Performed By: #### H FPFCBC #### [facility] [address] [place] [address] Dr. Johan Rosenberg MCH (RBC) [Entitic mass] 25.7 pg Critically low 25.9-34.0 [facility] Comment on above: Performed By: #### H FPFCBC #### [facility] [address] [place] [address] Dr. Johan Rosenberg MCHC (RBC) [Mass/Vol] 31.8 g/dL Normal 29.9-35.2 [facility] Comment on above: Performed By: #### H FPFCBC #### [facility] [address] [place] [address] Dr. Johan Rosenberg MCV (RBC) [Entitic vol] 80.9 fL Normal 80.0-94.0 [facility] Comment on above: Performed By: #### H FPFCBC #### [facility] [address] [place] [address] Dr. Johan Rosenberg MONO # 0.7 103/ul Normal 0.3-0.8 [facility] Comment on above: Performed By: #### H FPFCBC #### [facility] [address] [place] [address] Dr. Johan Rosenberg Monocytes/100 WBC (Bld) 13.3 % Critically high 1.7-12.0 [facility] Comment on above: Performed By: #### H FPFCBC #### [facility] [address] [place] [address] Dr. Johan Rosenberg NEUT # 2.8 103/ul Normal 1.4-6.5 [facility] Comment on above: Performed By: #### H FPFCBC #### [facility] [address] [place] [address] Dr. Johan Rosenberg Neutrophils/100 WBC (Bld) 53.1 % Normal 43.0-75.0 [facility] Comment on above: Performed By: #### H FPFCBC #### [facility] [address] [address] [address] Johan Rosenberg Platelet mean volume (Bld) [Entitic vol] 10.2 fL Normal 9.5-13.5 [facility] Comment on above: Performed By: #### H FPFCBC #### [facility] [address] [address] [address] Johan Rosenberg PLT 244 103/ul Normal 150-450 [facility] Comment on above: Performed By: #### H FPFCBC #### [facility] [address] [address] [address] Johan Rosenberg RBC 4.98 106/ul Normal 4.70-6.10 [facility] Comment on above: Performed By: #### H FPFCBC #### [facility] [address] [address] [address] Johan Rosenberg WBC 5.3 103/ul Normal 4.0-11.0 [facility] Comment on above: Performed By: #### H FPFCBC #### [facility] [address] [address] [address] Johan [facility] GLYCOHEMOGLOBIN A1Con 06-27-2022 Glucose [Mass/Vol] 128 mg/dL Normal [facility] Comment on above: Performed By: #### H FPFA1C #### [facility] [address] [address] [address] Johan Rosenberg HbA1c (Bld) [Mass fraction] 6.1 % Normal 4.5-6.2 [facility] Comment on above: Performed By: #### H FPFA1C #### [facility] [address] [address] [address] [facility]-2022 Albumin [Mass/Vol] 3.9 g/dL Normal 3.4-5.0 [facility] Comment on above: Performed By: #### C MP #### [facility] [address] [place] [address] Dr. Johan Rosenberg Albumin/Globulin [Mass ratio] 1.2 {ratio} Normal [facility] Comment on above: Performed By: #### C MP #### [facility] [address] [place] [address] Dr. Johan Rosenberg ALP [Catalytic activity/Vol] 115 U/L Normal 46-116 [facility] Comment on above: Performed By: #### C MP #### [facility] [address] [address] [address] Johan Rosenberg ALT [Catalytic activity/Vol] 29 U/L Normal 16-63 [facility] Comment on above: Performed By: #### C MP #### [facility] [address] [place] [address] Dr. Johan Rosenberg AST [Catalytic activity/Vol] 25 U/L Normal 15-37 [facility] Comment on above: Performed By: #### C MP #### [facility] [address] [place] [address] Dr. Johan Rosenberg Bilirubin [Mass/Vol] 0.5 mg/dL Normal 0.2-1.0 [facility] Comment on above: Performed By: #### C MP #### [facility] [address] [place] [address] Dr. Johan Rosenberg Calcium [Mass/Vol] 9.0 mg/dL Normal 8.5-10.1 [facility] Comment on above: Performed By: #### C MP #### [facility] [address] [place] [address] Dr. Johan Rosenberg Chloride [Moles/Vol] 106 mmol/L Normal 98-107 [facility] Comment on above: Performed By: #### C MP #### [facility] [address] [place] [address] Dr. Johan Rosenberg CHOL-HDL RATIO NORM SEE BELOW Normal [facility] Comment on above: Result Comment: 3.3 - 4.4 LOW RISK 4.4 - 7.1 AVERAGE RISK 7.1 - 11.0 MODERATE RISK >11.0 HIGH RISK Performed By: #### C MP #### [facility] [address] [place] [address] Dr. Johan Rosenberg Cholesterol [Mass/Vol] 160 mg/dL Normal <=200 [facility] Comment on above: Performed By: #### C MP #### [facility] [address] [address] [address] Johan Rosenberg Cholesterol in HDL [Mass/Vol] 48 mg/dL Normal 40-60 [facility] Comment on above: Performed By: #### C MP #### [facility] [address] [address] [address] Johan Rosenberg Cholesterol in LDL [Mass/Vol] 88.8 mg/dL Normal [facility] Comment on above: Performed By: #### C MP #### [facility] [address] [address] [address] Johan Rosenberg Cholesterol.total/ Cholesterol in HDL [Mass ratio] 3.3 {ratio} Normal [facility] Comment on above: Performed By: #### C MP #### [facility] [address] [address] [address] Johan Rosenberg CO2 [Moles/Vol] 26.8 mmol/L Normal 21.0-32.0 [facility] Comment on above: Performed By: #### C MP #### [facility] [address] [place] [address] Dr. Johan Rosenberg Creatinine [Mass/Vol] 0.95 mg/dL Normal 0.70-1.30 [facility] Comment on above: Performed By: #### C MP #### [facility] [address] [address] [address] Johan Rosenberg Globulin (S) [Mass/Vol] 3.3 g/dL Normal [facility] Comment on above: Performed By: #### C MP #### [facility] [address] [address] [address] Johan Rosenberg Glucose [Mass/Vol] 109 mg/dL Critically high 74-106 T [facility] Comment on above: Performed By: #### C MP #### [facility] [address] [address] [address] Johan Rosenberg HDL NORMAL > or = 60 mg/dl - LO W CARDIOVASCULAR RISK <40 mg/dl - HIGH CARDIOVASCULAR RISK Normal [facility] Comment on above: Performed By: #### C MP #### [facility] [address] [address] [address] Johan Rosenberg LDL CALC NORMAL SEE BELOW Normal [facility] Comment on above: Result Comment: <100 mg/dl OPTIMAL 100 - 129 mg/dl NEAR OR ABOVE OPTIMAL 130 - 159 mg/dl BORDERLINE HIGH 160 - 189 mg/dl HIGH >190 mg/dl VERY HIGH Performed By: #### C MP #### [facility] [address] [address] [address] Johan Rosenberg Potassium [Moles/Vol] 4.6 mmol/L Normal 3.5-5.1 [facility] Comment on above: Performed By: #### C MP #### [facility] [address] [address] [address] Johan Rosenberg Protein [Mass/Vol] 7.2 g/dL Normal 6.4-8.2 [facility] Comment on above: Performed By: #### C MP #### [facility] [address] [address] [address] Johan Rosenberg Sodium [Moles/Vol] 142 mmol/L Normal 136-145 [facility] Comment on above: Performed By: #### C MP #### [facility] [address] [address] [address] Johan Rosenberg Triglyceride [Mass/Vol] 116 mg/dL Normal <=150 [facility] Comment on above: Performed By: #### C MP #### [facility] [address] [address] [address] Johan Rosenberg TSH 0.733 uIU/mL Normal 0.358-3.740 [facility] Comment on above: Performed By: #### C MP #### [facility] [address] [address] [address] Johan Rosenberg Urea nitrogen [Mass/Vol] 20.0 mg/dL Critically high 7.0-18.0 [facility] Comment on above: Performed By: #### C MP #### [facility] [address] [address] [address] Johan Rosenberg Urea nitrogen/Creatinin e [Mass ratio] 21.1 mg/mg Normal [facility] Comment on above: Performed By: #### C MP #### [facility] [address] [place] [address] Dr. Johan Rosenberg VLDL CALC 23.2 mg/dL Normal [facility] Comment on above: Performed By: #### C MP #### [facility] [address] [place] [address] Dr. Johan Rosenberg CLOSTRIDIUM DIFFICILE PCRon 11-24-2021 C difficile Toxin Gene SILVANO Negative Normal Negative [facility] Comment on above: Performed By: #### C MP #### [facility] [address] [place] [address] Dr. Johan Rosenberg CBC AUTO DIFFon 11-02-2021 BASO # 0.0 103/ul Normal 0.0-0.1 [facility] Comment on above: Performed By: #### C BC #### [facility] [address] [place] [address] Dr. Johan Rosenberg Basophils/100 WBC (Bld) 0.3 % Normal 0.2-2.0 [facility] Comment on above: Performed By: #### C BC #### [facility] [address] [place] [address] Dr. Johan Rosenberg EO # 0.1 103/ul Normal 0.0-0.7 [facility] Comment on above: Performed By: #### C BC #### [facility] [address] [place] [address] Dr. Johan Rosenberg Eosinophils/100 WBC (Bld) 2.2 % Normal 0.9-7.0 [facility] Comment on above: Performed By: #### C BC #### [facility] [address] [place] [address] Dr. Johan Rosenberg Erythrocyte distribution width (RBC) [Ratio] 14.6 % Normal 11.0-15.0 [facility] Comment on above: Performed By: #### C BC #### [facility] [address] [place] [address] Dr. Johan Rosenberg Hematocrit (Bld) [Volume fraction] 41.9 % Critically low 42.0-54.0 [facility] Comment on above: Performed By: #### C BC #### [facility] [address] [place] [address] Dr. Johan Rosenberg Hemoglobin (Bld) [Mass/Vol] 13.3 g/dL Critically low 14.0-18.0 [facility] Comment on above: Performed By: #### C BC #### [facility] [address] [place] [address] Dr. Johan Rosenberg IG # 0.02 10e3/ul Normal 0.00-0.03 [facility] Comment on above: Performed By: #### C BC #### [facility] [address] [place] [address] Dr. Johan Rosenberg IG % 0.3 % Normal 0.0-0.5 [facility] Comment on above: Performed By: #### C BC #### [facility] [address] [place] [address] Dr. Johan Rosenberg LYMPH # 1.5 103/ul Normal 1.2-3.8 [facility] Comment on above: Performed By: #### C BC #### [facility] [address] [place] [address] Dr. Johan Rosenberg Lymphocytes/100 WBC (Bld) 24.2 % Normal 20.5-60.0 [facility] Comment on above: Performed By: #### C BC #### [facility] [address] [place] [address] Dr. Johan Rosenberg MANUAL DIFF REQ NO Normal [facility] Comment on above: Performed By: #### C BC #### [facility] [address] [place] [address] Dr. Johan Rosenberg MCH (RBC) [Entitic mass] 26.9 pg Normal 25.9-34.0 [facility] Comment on above: Performed By: #### C BC #### [facility] [address] [place] [address] Dr. Johan Rosenberg MCHC (RBC) [Mass/Vol] 31.7 g/dL Normal 29.9-35.2 [facility] Comment on above: Performed By: #### C BC #### [facility] [address] [place] [address] Dr. Johan Rosenberg MCV (RBC) [Entitic vol] 84.6 fL Normal 80.0-94.0 [facility] Comment on above: Performed By: #### C BC #### [facility] [address] [place] [address] Dr. Johan Rosenberg MONO # 0.8 103/ul Normal 0.3-0.8 [facility] Comment on above: Performed By: #### C BC #### [facility] [address] [place] [address] Dr. Johan Rosenberg Monocytes/100 WBC (Bld) 12.3 % Critically high 1.7-12.0 [facility] Comment on above: Performed By: #### C BC #### [facility] [address] [place] [address] Dr. Johan Rosenberg NEUT # 3.8 103/ul Normal 1.4-6.5 [facility] Comment on above: Performed By: #### C BC #### [facility] [address] [place] [address] Dr. Johan Rosenberg Neutrophils/100 WBC (Bld) 60.7 % Normal 43.0-75.0 [facility] Comment on above: Performed By: #### C BC #### [facility] [address] [place] [address] Dr. Johan Rosenberg Platelet mean volume (Bld) [Entitic vol] 9.9 fL Normal 9.5-13.5 [facility] Comment on above: Performed By: #### C BC #### [facility] [address] [place] [address] Dr. Johan Rosenberg PLT 239 103/ul Normal 150-450 [facility] Comment on above: Performed By: #### C BC #### [facility] [address] [place] [address] Dr. Johan Rosenberg RBC 4.95 106/ul Normal 4.70-6.10 [facility] Comment on above: Performed By: #### C BC #### [facility] [address] [address] [address] Johan Rosenberg WBC 6.3 103/ul Normal 4.0-11.0 [facility] Comment on above: Performed By: #### C BC #### [facility] [address] [address] [address] Johan Rosenberg CBC AUTO DIFFon 10-30-2021 BASO # 0.0 103/ul Normal 0.0-0.1 [facility] Comment on above: Performed By: #### C MP #### [facility] [address] [address] [address] Johan Rosenberg Basophils/100 WBC (Bld) 0.2 % Normal 0.2-2.0 [facility] Comment on above: Performed By: #### C MP #### [facility] [address] [place] [address] Dr. Johan Rosenberg EO # 0.1 103/ul Normal 0.0-0.7 [facility] Comment on above: Performed By: #### C MP #### [facility] [address] [place] [address] Dr. Johan Rosenberg Eosinophils/100 WBC (Bld) 2.5 % Normal 0.9-7.0 [facility] Comment on above: Performed By: #### C MP #### [facility] [address] [place] [address] Dr. Johan Rosenberg Erythrocyte distribution width (RBC) [Ratio] 14.6 % Normal 11.0-15.0 [facility] Comment on above: Performed By: #### C MP #### [facility] [address] [place] [address] Dr. Johan Rosenberg Hematocrit (Bld) [Volume fraction] 38.5 % Critically low 42.0-54.0 [facility] Comment on above: Performed By: #### C MP #### [facility] [address] [place] [address] Dr. Johan Rosenberg Hemoglobin (Bld) [Mass/Vol] 12.1 g/dL Critically low 14.0-18.0 [facility] Comment on above: Performed By: #### C MP #### [facility] [address] [address] [address] Johan Rosenberg IG # 0.01 10e3/ul Normal 0.00-0.03 [facility] Comment on above: Performed By: #### C MP #### [facility] [address] [address] [address] Johan Rosenberg IG % 0.2 % Normal 0.0-0.5 [facility] Comment on above: Performed By: #### C MP #### [facility] [address] [place] [address] Dr. Johan Rosenberg LYMPH # 1.3 103/ul Normal 1.2-3.8 [facility] Comment on above: Performed By: #### C MP #### [facility] [address] [place] [address] Dr. Johan Rosenberg Lymphocytes/100 WBC (Bld) 24.7 % Normal 20.5-60.0 [facility] Comment on above: Performed By: #### C MP #### [facility] [address] [place] [address] Dr. Johan Rosenberg MANUAL DIFF REQ NO Normal [facility] Comment on above: Performed By: #### C MP #### [facility] [address] [place] [address] Dr. Johan Rosenberg MCH (RBC) [Entitic mass] 27.0 pg Normal 25.9-34.0 [facility] Comment on above: Performed By: #### C MP #### [facility] [address] [place] [address] Dr. Johan Rosenberg MCHC (RBC) [Mass/Vol] 31.4 g/dL Normal 29.9-35.2 [facility] Comment on above: Performed By: #### C MP #### [facility] [address] [place] [address] Dr. Johan Rosenberg MCV (RBC) [Entitic vol] 85.9 fL Normal 80.0-94.0 [facility] Comment on above: Performed By: #### C MP #### [facility] [address] [address] [address] Johan Rosenberg MONO # 0.7 103/ul Normal 0.3-0.8 [facility] Comment on above: Performed By: #### C MP #### [facility] [address] [address] [address] Johan Rosenberg Monocytes/100 WBC (Bld) 14.3 % Critically high 1.7-12.0 [facility] Comment on above: Performed By: #### C MP #### [facility] [address] [place] [address] Dr. Johan Rosenberg NEUT # 3.0 103/ul Normal 1.4-6.5 [facility] Comment on above: Performed By: #### C MP #### [facility] [address] [place] [address] Dr. Johan Rosenberg Neutrophils/100 WBC (Bld) 58.1 % Normal 43.0-75.0 [facility] Comment on above: Performed By: #### C MP #### [facility] [address] [place] [address] Dr. Johan Rosenberg Platelet mean volume (Bld) [Entitic vol] 10.2 fL Normal 9.5-13.5 [facility] Comment on above: Performed By: #### C MP #### [facility] [address] [place] [address] Dr. Johan Rosenberg PLT 199 103/ul Normal 150-450 [facility] Comment on above: Performed By: #### C MP #### [facility] [address] [place] [address] Dr. Johan Rosenberg RBC 4.48 106/ul Critically low 4.70-6.10 [facility] Comment on above: Performed By: #### C MP #### [facility] [address] [place] [address] Dr. Johan Rosenberg WBC 5.2 103/ul Normal 4.0-11.0 [facility] Comment on above: Performed By: #### C MP #### [facility] [address] [place] [address] Dr. Johan Rosenberg PROF 14(COMP METB)on 022 Albumin [Mass/Vol] 3.0 g/dL Critically low 3.4-5.0 [facility] Comment on above: Performed By: #### C MP #### [facility] [address] [place] [address] Dr. Johan Rosenberg Albumin/Globulin [Mass ratio] 1.0 {ratio} Normal [facility] Comment on above: Performed By: #### C MP #### [facility] [address] [place] [address] Dr. Johan Rosenberg ALP [Catalytic activity/Vol] 96 U/L Normal 46-116 [facility] Comment on above: Performed By: #### C MP #### [facility] [address] [place] [address] Dr. Johan Rosenberg ALT [Catalytic activity/Vol] 24 U/L Normal 16-63 [facility] Comment on above: Performed By: #### C MP #### [facility] [address] [place] [address] Dr. Johan Rosenberg Anion gap [Moles/Vol] 11.8 mmol/L Normal [facility] Comment on above: Performed By: #### C MP #### [facility] [address] [place] [address] Dr. Johan Rosenberg AST [Catalytic activity/Vol] 17 U/L Normal 15-37 [facility] Comment on above: Performed By: #### C MP #### [facility] [address] [place] [address] Dr. Johan Rosenberg Bilirubin [Mass/Vol] 0.6 mg/dL Normal 0.2-1.0 [facility] Comment on above: Performed By: #### C MP #### [facility] [address] [place] [address] Dr. Johan Rosenberg Calcium [Mass/Vol] 8.4 mg/dL Critically low 8.5-10.1 [facility] Comment on above: Performed By: #### C MP #### [facility] [address] [address] [address] Johan Rosenberg Chloride [Moles/Vol] 110 mmol/L Critically high 98-107 [facility] Comment on above: Performed By: #### C MP #### [facility] [address] [address] [address] Johan Rosenberg CO2 [Moles/Vol] 25.7 mmol/L Normal 21.0-32.0 [facility] Comment on above: Performed By: #### C MP #### [facility] [address] [place] [address] Dr. Johan Rosenberg Creatinine [Mass/Vol] 1.01 mg/dL Normal 0.70-1.30 [facility] Comment on above: Performed By: #### C MP #### [facility] [address] [place] [address] Dr. Johan Rosenberg EGFR-AF PARAGUAYAN >60 Normal >=60 [facility] Comment on above: Performed By: #### C MP #### [facility] [address] [address] [address] Johan Rosenberg EGFR-NON AF PARAGUAYAN >60 Normal >=60 [facility] Comment on above: Performed By: #### C MP #### [facility] [address] [place] [address] Dr. Johan Rosenberg Globulin (S) [Mass/Vol] 2.9 g/dL Normal [facility] Comment on above: Performed By: #### C MP #### [facility] [address] [place] [address] Dr. Johan Rosenberg Glucose [Mass/Vol] 109 mg/dL Critically high 74-106 [facility] Comment on above: Performed By: #### C MP #### [facility] [address] [address] [address] Johan Rosenberg Potassium [Moles/Vol] 4.5 mmol/L Normal 3.5-5.1 [facility] Comment on above: Performed By: #### C MP #### [facility] [address] [place] [address] Dr. Johan Rosenberg Protein [Mass/Vol] 5.9 g/dL Critically low 6.4-8.2 [facility] Comment on above: Performed By: #### C MP #### [facility] [address] [place] [address] Dr. Johan Rosenberg Sodium [Moles/Vol] 143 mmol/L Normal 136-145 [facility] Comment on above: Performed By: #### C MP #### [facility] [address] [place] [address] Dr. Johan Rosenberg Urea nitrogen [Mass/Vol] 12.0 mg/dL Normal 7.0-18.0 [facility] Comment on above: Performed By: #### C MP #### [facility] [address] [place] [address] Dr. Johan Rosenberg Urea nitrogen/Creatinin e [Mass ratio] 11.9 mg/mg Normal [facility] Comment on above: Performed By: #### C MP #### [facility] [address] [place] [address] Dr. Johan Rosenberg CBC AUTO DIFFon 10-29-2021 BASO # 0.0 103/ul Normal 0.0-0.1 [facility] Comment on above: Performed By: #### C BC #### [facility] [address] [place] [address] Dr. Johan Rosenberg Basophils/100 WBC (Bld) 0.1 % Critically low 0.2-2.0 [facility] Comment on above: Performed By: #### C BC #### [facility] [address] [place] [address] Dr. Johan Rosenberg EO # 0.1 103/ul Normal 0.0-0.7 [facility] Comment on above: Performed By: #### C BC #### [facility] [address] [place] [address] Dr. Johan Rosenberg Eosinophils/100 WBC (Bld) 1.5 % Normal 0.9-7.0 [facility] Comment on above: Performed By: #### C BC #### [facility] [address] [place] [address] Dr. Johan Rosenberg Erythrocyte distribution width (RBC) [Ratio] 14.7 % Normal 11.0-15.0 [facility] Comment on above: Performed By: #### C BC #### [facility] [address] [place] [address] Dr. Johan Rosenberg Hematocrit (Bld) [Volume fraction] 39.6 % Critically low 42.0-54.0 [facility] Comment on above: Performed By: #### C BC #### [facility] [address] [place] [address] Dr. Johan Rosenberg Hemoglobin (Bld) [Mass/Vol] 12.6 g/dL Critically low 14.0-18.0 [facility] Comment on above: Performed By: #### C BC #### [facility] [address] [place] [address] Dr. Johan Rosenberg IG # 0.02 10e3/ul Normal 0.00-0.03 [facility] Comment on above: Performed By: #### C BC #### [facility] [address] [place] [address] Dr. Johan Rosenberg IG % 0.3 % Normal 0.0-0.5 [facility] Comment on above: Performed By: #### C BC #### [facility] [address] [place] [address] Dr. Johan Rosenberg LYMPH # 1.6 103/ul Normal 1.2-3.8 [facility] Comment on above: Performed By: #### C BC #### [facility] [address] [place] [address] Dr. Johan Rosenberg Lymphocytes/100 WBC (Bld) 20.3 % Critically low 20.5-60.0 [facility] Comment on above: Performed By: #### C BC #### [facility] [address] [place] [address] Dr. Johan Rosenberg MANUAL DIFF REQ NO Normal [facility] Comment on above: Performed By: #### C BC #### [facility] [address] [place] [address] Dr. Johan Rosenberg MCH (RBC) [Entitic mass] 26.9 pg Normal 25.9-34.0 [facility] Comment on above: Performed By: #### C BC #### [facility] [address] [address] [address] Johan Rosenberg MCHC (RBC) [Mass/Vol] 31.8 g/dL Normal 29.9-35.2 [facility] Comment on above: Performed By: #### C BC #### [facility] [address] [address] [address] Johan Rosenberg MCV (RBC) [Entitic vol] 84.6 fL Normal 80.0-94.0 [facility] Comment on above: Performed By: #### C BC #### [facility] [address] [address] [address] Johan Rosenberg MONO # 1.0 103/ul Critically high 0.3-0.8 [facility] Comment on above: Performed By: #### C BC #### [facility] [address] [address] [address] Johan Rosenberg Monocytes/100 WBC (Bld) 12.2 % Critically high 1.7-12.0 [facility] Comment on above: Performed By: #### C BC #### [facility] [address] [place] [address] Dr. Johan Rosenberg NEUT # 5.2 103/ul Normal 1.4-6.5 [facility] Comment on above: Performed By: #### C BC #### [facility] [address] [address] [address] Johan Rosenberg Neutrophils/100 WBC (Bld) 65.6 % Normal 43.0-75.0 [facility] Comment on above: Performed By: #### C BC #### [facility] [address] [address] [address] Johan Rosenberg Platelet mean volume (Bld) [Entitic vol] 10.2 fL Normal 9.5-13.5 [facility] Comment on above: Performed By: #### C BC #### [facility] [address] [address] [address] Johan Rosenberg PLT 206 103/ul Normal 150-450 [facility] Comment on above: Performed By: #### C BC #### [facility] [address] [address] [address] Johan Rosenberg RBC 4.68 106/ul Critically low 4.70-6.10 [facility] Comment on above: Performed By: #### C BC #### [facility] [address] [address] [address] Johan Rosenberg WBC 8.0 103/ul Normal 4.0-11.0 [facility] Comment on above: Performed By: #### C BC #### [facility] [address] [address] [address] Johan Rosenberg GI PANEL (PCR)on 10-29-2021 Adenovirus F 40/41 Not detected Normal NOT DETECTED [facility] Comment on above: Performed By: #### G IPANEL #### [facility] [address] [place] [address] Dr. Johan Rosenberg Astrovirus Not detected Normal NOT DETECTED [facility] Comment on above: Performed By: #### G IPANEL #### [facility] [address] [place] [address] Dr. Johan Rosenberg C. Diff toxin A/B Detected Critically abnormal NOT DETECTED [facility] Comment on above: Performed By: #### G IPANEL #### [facility] [address] [address] [address] Johan Rosenberg Campylobacter Not detected Normal NOT DETECTED [facility] Comment on above: Performed By: #### G IPANEL #### [facility] [address] [place] [address] Dr. Johan Rosenberg Cryptosporidium Not detected Normal NOT DETECTED [facility] Comment on above: Performed By: #### G IPANEL #### [facility] [address] [place] [address] Dr. Johan Rosenberg Cyclos. Cayetanensis Not detected Normal NOT DETECTED [facility] Comment on above: Performed By: #### G IPANEL #### [facility] [address] [place] [address] Dr. Johan Rosenberg E. Coli O157 Not Applicable Normal Not Applicable [facility] Comment on above: Performed By: #### G IPANEL #### [facility] [address] [place] [address] Dr. Johan Rosenberg EHay histolytica Not detected Normal NOT DETECTED [facility] Comment on above: Performed By: #### G IPANEL #### [facility] [address] [place] [address] Dr. Johan Rosenberg EAEC Not detected Normal NOT DETECTED [facility] Comment on above: Performed By: #### G IPANEL #### [facility] [address] [place] [address] Dr. Johan Rosenberg EIEC Not detected Normal NOT DETECTED [facility] Comment on above: Performed By: #### G IPANEL #### [facility] [address] [place] [address] Dr. Johan Rosenberg EPEC Not detected Normal NOT DETECTED [facility] Comment on above: Performed By: #### G IPANEL #### [facility] [address] [place] [address] Dr. Johan Rosenberg ETEC Not detected Normal NOT DETECTED [facility] Comment on above: Performed By: #### G IPANEL #### [facility] [address] [place] [address] Dr. Johan Solo Lamblia Not detected Normal NOT DETECTED [facility] Comment on above: Performed By: #### G IPANEL #### [facility] [address] [place] [address] Dr. Johan PATRICKL CONTROLS PASSED Normal [facility] Comment on above: Performed By: #### G IPANEL #### [facility] [address] [place] [address] Dr. Johan HOSKINS BISI HEADER GI PANEL BACTERIA Normal T [facility] Comment on above: Performed By: #### G IPANEL #### [facility] [address] [place] [address] Dr. Johan HOSKINSHD ECOLI GI PANEL DIARRHEAGEN IC E.COLI / SHIGELLA Normal [facility] Comment on above: Performed By: #### G IPANEL #### [facility] [address] [address] [address] Johan SAEED INFO SEE BELOW Normal [facility] Comment on above: Result Comment: EAEC - Enteroaggregative E. Coli EPEC- Enteropathogenic E. Coli ETEC- Enterotoxigenic E. Coli lt/st STEC- Shigella-like toxin-producing E. Coli stx1/stx2 EIEC- Shigella/Enteroinvasive E. Coli Performed By: #### G IPANEL #### [facility] [address] [address] [address] Johan SAEED PARASITES GI PANEL PARASITES Normal [facility] Comment on above: Performed By: #### G IPANEL #### [facility] [address] [address] [address] Johan SAEED VIRUS GI PANEL VIRUSES Normal [facility] Comment on above: Performed By: #### G IPANEL #### [facility] [address] [address] [address] Johan Rosenberg Norovirus GI/GII Not detected Normal NOT DETECTED [facility] Comment on above: Performed By: #### G IPANEL #### [facility] [address] [address] [address] Johan Rosenberg P. Shigelloides Not detected Normal NOT DETECTED [facility] Comment on above: Performed By: #### G IPANEL #### [facility] [address] [address] [address] Johan Rosenberg Rotavirus A Not detected Normal NOT DETECTED [facility] Comment on above: Performed By: #### G IPANEL #### [facility] [address] [address] [address] Johan Rosenberg Salmonella Not detected Normal NOT DETECTED [facility] Comment on above: Performed By: #### G IPANEL #### [facility] [address] [place] [address] Dr. Johan Rosenberg Sapovirus Not detected Normal NOT DETECTED [facility] Comment on above: Performed By: #### G IPANEL #### [facility] [address] [address] [address] Johan Rosenberg STEC Not detected Normal NOT DETECTED [facility] Comment on above: Performed By: #### G IPANEL #### [facility] [address] [place] [address] Dr. Johan Rosenberg Vibrio Not detected Normal NOT DETECTED [facility] Comment on above: Performed By: #### G IPANEL #### [facility] [address] [place] [address] Dr. Johan Rosenberg Vibrio Cholera Not detected Normal NOT DETECTED [facility] Comment on above: Performed By: #### G IPANEL #### [facility] [address] [place] [address] Dr. Johan Rosenberg Y. Enterocolitica Not detected Normal NOT DETECTED [facility] Comment on above: Performed By: #### G IPANEL #### [facility] [address] [place] [address] Dr. Johan Rosenberg PROF 14(COMP METB)on 022 Albumin [Mass/Vol] 3.3 g/dL Critically low 3.4-5.0 Th [facility] Comment on above: Performed By: #### C MP #### [facility] [address] [place] [address] Dr. Johan Rosenberg Albumin/Globulin [Mass ratio] 1.1 {ratio} Normal [facility] Comment on above: Performed By: #### C MP #### [facility] [address] [place] [address] Dr. Johan Rosenberg ALP [Catalytic activity/Vol] 104 U/L Normal 46-116 [facility] Comment on above: Performed By: #### C MP #### [facility] [address] [place] [address] Dr. Johan Rosenberg ALT [Catalytic activity/Vol] 26 U/L Normal 16-63 [facility] Comment on above: Performed By: #### C MP #### [facility] [address] [place] [address] Dr. Johan Rosenberg Anion gap [Moles/Vol] 12.0 mmol/L Normal [facility] Comment on above: Performed By: #### C MP #### [facility] [address] [address] [address] Johan Rosenberg AST [Catalytic activity/Vol] 19 U/L Normal 15-37 [facility] Comment on above: Performed By: #### C MP #### [facility] [address] [address] [address] Johan Rosenberg Bilirubin [Mass/Vol] 0.7 mg/dL Normal 0.2-1.0 [facility] Comment on above: Performed By: #### C MP #### [facility] [address] [address] [address] Johan Rosenberg Calcium [Mass/Vol] 8.6 mg/dL Normal 8.5-10.1 [facility] Comment on above: Performed By: #### C MP #### [facility] [address] [place] [address] Dr. Johan Rosenberg Chloride [Moles/Vol] 107 mmol/L Normal 98-107 [facility] Comment on above: Performed By: #### C MP #### [facility] [address] [place] [address] Dr. Johan Rosenberg CO2 [Moles/Vol] 26.0 mmol/L Normal 21.0-32.0 [facility] Comment on above: Performed By: #### C MP #### [facility] [address] [place] [address] Dr. Johan Rosenberg Creatinine [Mass/Vol] 1.14 mg/dL Normal 0.70-1.30 [facility] Comment on above: Performed By: #### C MP #### [facility] [address] [place] [address] Dr. Johan Rosenberg EGFR-AF PARAGUAYAN >60 Normal >=60 [facility] Comment on above: Performed By: #### C MP #### [facility] [address] [place] [address] Dr. Johan Rosenberg EGFR-NON AF PARAGUAYAN >60 Normal >=60 [facility] Comment on above: Performed By: #### C MP #### [facility] [address] [place] [address] Dr. Johan Rosenberg Globulin (S) [Mass/Vol] 3.1 g/dL Normal [facility] Comment on above: Performed By: #### C MP #### [facility] [address] [place] [address] Dr. Johan Rosenberg Glucose [Mass/Vol] 108 mg/dL Critically high 74-106 T [facility] Comment on above: Performed By: #### C MP #### [facility] [address] [address] [address] Johan Rosenberg Potassium [Moles/Vol] 4.0 mmol/L Normal 3.5-5.1 [facility] Comment on above: Performed By: #### C MP #### [facility] [address] [place] [address] Dr. Johan Rosenberg Protein [Mass/Vol] 6.4 g/dL Normal 6.4-8.2 [facility] Comment on above: Performed By: #### C MP #### [facility] [address] [place] [address] Dr. Johan Rosenberg Sodium [Moles/Vol] 141 mmol/L Normal 136-145 [facility] Comment on above: Performed By: #### C MP #### [facility] [address] [place] [address] Dr. Johan Rosenberg Urea nitrogen [Mass/Vol] 15.0 mg/dL Normal 7.0-18.0 [facility] Comment on above: Performed By: #### C MP #### [facility] [address] [place] [address] Dr. Johan Rosenberg Urea nitrogen/Creatinin e [Mass ratio] 13.2 mg/mg Normal [facility] Comment on above: Performed By: #### C MP #### [facility] [address] [place] [address] Dr. Johan Rosenberg CBC AUTO DIFFon 10-28-2021 BASO # 0.0 103/ul Normal 0.0-0.1 [facility] Comment on above: Performed By: #### C BC #### [facility] [address] [place] [address] Dr. Johan Rosenberg Basophils/100 WBC (Bld) 0.2 % Normal 0.2-2.0 [facility] Comment on above: Performed By: #### C BC #### [facility] [address] [place] [address] Dr. Johan Rosenberg EO # 0.1 103/ul Normal 0.0-0.7 [facility] Comment on above: Performed By: #### C BC #### [facility] [address] [place] [address] Dr. Johan Rosenberg Eosinophils/100 WBC (Bld) 0.7 % Critically low 0.9-7.0 [facility] Comment on above: Performed By: #### C BC #### [facility] [address] [place] [address] Dr. Johan Rosenberg Erythrocyte distribution width (RBC) [Ratio] 14.4 % Normal 11.0-15.0 [facility] Comment on above: Performed By: #### C BC #### [facility] [address] [place] [address] Dr. Johan Rosenberg Hematocrit (Bld) [Volume fraction] 41.8 % Critically low 42.0-54.0 [facility] Comment on above: Performed By: #### C BC #### [facility] [address] [place] [address] Dr. Johan Rosenberg Hemoglobin (Bld) [Mass/Vol] 13.5 g/dL Critically low 14.0-18.0 [facility] Comment on above: Performed By: #### C BC #### [facility] [address] [place] [address] Dr. Johan Rosenberg IG # 0.03 10e3/ul Normal 0.00-0.03 [facility] Comment on above: Performed By: #### C BC #### [facility] [address] [place] [address] Dr. Johan Rosenberg IG % 0.3 % Normal 0.0-0.5 [facility] Comment on above: Performed By: #### C BC #### [facility] [address] [place] [address] Dr. Johan Rosenberg LYMPH # 1.3 103/ul Normal 1.2-3.8 [facility] Comment on above: Performed By: #### C BC #### [facility] [address] [place] [address] Dr. Johan Rosenberg Lymphocytes/100 WBC (Bld) 13.4 % Critically low 20.5-60.0 [facility] Comment on above: Performed By: #### C BC #### [facility] [address] [place] [address] Dr. Johan Rosenberg MANUAL DIFF REQ NO Normal [facility] Comment on above: Performed By: #### C BC #### [facility] [address] [place] [address] Dr. Johan Rosenberg MCH (RBC) [Entitic mass] 27.2 pg Normal 25.9-34.0 [facility] Comment on above: Performed By: #### C BC #### [facility] [address] [place] [address] Dr. Johan Rosenberg MCHC (RBC) [Mass/Vol] 32.3 g/dL Normal 29.9-35.2 [facility] Comment on above: Performed By: #### C BC #### [facility] [address] [place] [address] Dr. Johan Rosenberg MCV (RBC) [Entitic vol] 84.3 fL Normal 80.0-94.0 [facility] Comment on above: Performed By: #### C BC #### [facility] [address] [place] [address] Dr. Johan Rosenberg MONO # 1.0 103/ul Critically high 0.3-0.8 [facility] Comment on above: Performed By: #### C BC #### [facility] [address] [place] [address] Dr. Johan Rosenberg Monocytes/100 WBC (Bld) 9.7 % Normal 1.7-12.0 [facility] Comment on above: Performed By: #### C BC #### [facility] [address] [place] [address] Dr. Johan Rosenberg NEUT # 7.5 103/ul Critically high 1.4-6.5 [facility] Comment on above: Performed By: #### C BC #### [facility] [address] [place] [address] Dr. Johan Rosenberg Neutrophils/100 WBC (Bld) 75.7 % Critically high 43.0-75.0 [facility] Comment on above: Performed By: #### C BC #### [facility] [address] [place] [address] Dr. Johan Rosenberg Platelet mean volume (Bld) [Entitic vol] 9.9 fL Normal 9.5-13.5 [facility] Comment on above: Performed By: #### C BC #### [facility] [address] [place] [address] Dr. Johan Rosenberg PLT 233 103/ul Normal 150-450 [facility] Comment on above: Performed By: #### C BC #### [facility] [address] [place] [address] Dr. Johan Rosenberg RBC 4.96 106/ul Normal 4.70-6.10 [facility] Comment on above: Performed By: #### C BC #### [facility] [address] [place] [address] Dr. Johan Rosenberg WBC 9.9 103/ul Normal 4.0-11.0 [facility] Comment on above: Performed By: #### C BC #### [facility] [address] [place] [address] Dr. Johan Rosenberg CRPon 10-28-2021 CRP [Mass/Vol] mg/L Normal <=1.0 [facility] Comment on above: Performed By: #### C MP #### [facility] [address] [place] [address] ABD/PELV W CONon 10-29-19 CT ABD/PELV W CON EXAMINATION: CT ABD/PELV W CON HISTORY: Rectal hemorrhage COMPARISON: None. TECHNIQUE: Axial CT images were obtained of the abdomen and pelvis with intravenous contrast. Multiplanar reconstructions were performed. Dose reduction techniques were achieved by using automated exposure control and/or adjustment of mA and/or kV according to patient size and/or use of iterative reconstruction technique. ABDOMEN/PELVIS FINDINGS: Lower Chest: Unremarkable. Liver: Normal enhancement and contour. Biliary/Gallbladder: Unremarkable. Pancreas: Unremarkable. Spleen: Unremarkable. Adrenal Glands: Unremarkable. Kidneys: Unremarkable. Gastrointestinal/Perito neum: There is colonic wall thickening at the descending, sigmoid and rectal portions of the colon. There are no dilated loops of bowel. Mild colonic diverticulosis is present. The appendix is unremarkable. No free air or free fluid. Vascular: Mild scattered atherosclerotic disease is present. Lymph Nodes: No enlarged lymph nodes by CT size criteria. Pelvic Organs: Mild prostatomegaly is present. Bladder: Unremarkable. Bones: No acute osseous abnormality. Soft tissues: There is a small fat-containing umbilical hernia. IMPRESSION: 1. Diffuse colonic wall thickening is present throughout the descending, sigmoid and rectal portions of the colon, likely due to acute infectious or inflammatory colitis. 2. Prostatomegaly. 3. Small fat-containing umbilical hernia. Electronically authenticated by: TARA CROCKETT Date: 2021-10-28 14:21 Normal [facility] Covid-19 PCR ([facility])on SARS-CoV-2 (COVID-19) RNA SILVANO+probe Ql (Unsp spec) Not detected Normal NOT DETECTED [facility] Comment on above: Result Comment: When diagnostic testing is negative, the possibility of a false negative should be considered in the context of a patient's recent exposures and the presence of clinical signs and symptoms consistent with SARS-CoV-2. This test is not yet approved or cleared by the [place] FDA. When there are no FDA-approved or cleared tests available, and other criteria are met, FDA can make tests available under an emergency access mechanism called an Emergency Use Authorization (EUA). The EUA for this test is supported by the Automatic Spooler Operator of Health and Human Service's declaration that circumstances exist to justify the emergency use of in vitro diagnostics for the detection and/or diagnosis of the virus that causes COVID-19. This EUA will remain in effect for the duration of the COVID-19 declaration justifying emergency of IVDs, unless it is terminated or revoked by the FDA (after which the test may no longer be used). Performed By: #### C [facility] #### [facility] [address] [address] [address] Johan Rosenberg LACTATE/LACTIC ACIDon 2021 Lactate [Moles/Vol] 0.7 mmol/L Normal 0.4-1.9 [facility] Comment on above: Performed By: #### L ACT #### [facility] [address] [address] [address] Johan Rosenberg PROF CHEM 8 (BAS METB)on Anion gap [Moles/Vol] 12.2 mmol/L Normal [facility] Comment on above: Performed By: #### C MP #### [facility] [address] [address] [address] Johan Rosenberg Calcium [Mass/Vol] 9.1 mg/dL Normal 8.5-10.1 [facility] Comment on above: Performed By: #### C MP #### [facility] [address] [place] [address] Dr. Johan Rosenberg Chloride [Moles/Vol] 105 mmol/L Normal 98-107 [facility] Comment on above: Performed By: #### C MP #### [facility] [address] [address] [address] Johan Rosenberg CO2 [Moles/Vol] 25.8 mmol/L Normal 21.0-32.0 [facility] Comment on above: Performed By: #### C MP #### [facility] [address] [address] [address] Johan Rosenberg Creatinine [Mass/Vol] 1.15 mg/dL Normal 0.70-1.30 [facility] Comment on above: Performed By: #### C MP #### [facility] [address] [place] [address] Dr. Johan Rosenberg EGFR-AF PARAGUAYAN >60 Normal >=60 [facility] Comment on above: Performed By: #### C MP #### [facility] [address] [address] [address] Johan Rosenberg EGFR-NON AF PARAGUAYAN >60 Normal >=60 [facility] Comment on above: Performed By: #### C MP #### [facility] [address] [address] [address] Johan Rosenberg Glucose [Mass/Vol] 109 mg/dL Critically high 74-106 T [facility] Comment on above: Performed By: #### C MP #### [facility] [address] [address] [address] Johan Rosenberg Potassium [Moles/Vol] 4.0 mmol/L Normal 3.5-5.1 [facility] Comment on above: Performed By: #### C MP #### [facility] [address] [address] [address] Johan Rosenberg Sodium [Moles/Vol] 139 mmol/L Normal 136-145 [facility] Comment on above: Performed By: #### C MP #### [facility] [address] [address] [address] Johan Rosenberg Urea nitrogen [Mass/Vol] 23.0 mg/dL Critically high 7.0-18.0 [facility] Comment on above: Performed By: #### C MP #### [facility] [address] [address] [address] Johan Rosenberg Urea nitrogen/Creatinin e [Mass ratio] 20.0 mg/mg Normal [facility] Comment on above: Performed By: #### C MP #### [facility] [address] [address] [address] Johan Rosenberg SED RATE [facility] 2021 SED RATE 16 mm/hr Normal <=20 [facility] Comment on above: Performed By: #### C MP #### [facility] [address] [address] [address] Johan Rosenberg COVID Quick Testingon 2021 Result Negative [facility] Other Adolfo 07-14-2021 L --- Specimen: [id number] Received: 07/14/21 Status: DORIS Jacques Num: [id number] Spec Type: Surgical Subm Dr: Mauricio Stafford MD Tissues: A Duodenum - Biopsy (DUODENAL BX) B Stomach - Biopsy/Polyp (ANTRUM BX) Procedures: HE Stain/4, Gross/Micro L4/2 Patient Age/Sex Location Account Attending Physician Te Curtis/M [id number] Mauricio Stafford MD SPEC NUM: [id number] RECD: 07/14/21-1229 STATUS: DORIS JACQUES NUM: [id number] ALLAN: 07/14/21- SUBM DR: Mauricio Stafford MD ENTERED: 07/14/21-[address]: SPEC TYPE: Surgical DEPT: S ORDERED: HE Stain/4, Gross/Micro L4/2 ORDERED: HE Stain/4, Gross/Micro L4/2 Pathological Diagnosis A. Duodenum, biopsy: - Duodenal mucosa with no significant pathologic findings. - No villous atrophy or intraepithelial lymphocytosis identified. B. Stomach, antrum, biopsy: - Reactive gastropathy, mild chronic and minimal active gastritis. - H. pylori stain is negative for microorganisms. Clinical Information GERD Gross Description A. Received in a container filled with formalin, labeled with patient's name, number and duodenal biopsy rule out sprue , are two fragments of pink-bright mucosa tissue measuring together 0.4 x 0.2 x 0.2 cm, entirely submitted in one cassette labeled A1. B. Received in a container filled with formalin, labeled with the patient's name, number and antrum, patchy antral gastritis rule out H. pylori is a o.2 cm bright mucosa tissue entirely submitted in one cassette labeled B1. Specimen: [id number] Received: 07/14/21 Status: DORIS Espinalandrew Num: [id number] Spec Type: Surgical Subm Dr: Mauricio Stafford MD Tissues: A Duodenum - Biopsy (DUODENAL BX) B Stomach - Biopsy/Polyp (ANTRUM BX) Procedures: HE Stain/4, Gross/Micro L4/2 Patient: Te Curtis [id number] (Continued) Specimen: [id number] Received: 07/14/21 (Continued) Signed (signature on file) Nura Shelby MD 07/15/21 1545 Specimen: Received: 07/14/21 Status: DORIS Sawyer Num: [id number] Spec Type: Surgical Subm Dr: Mauricio Stafford MD Tissues: A Duodenum - Biopsy (DUODENAL BX) B Stomach - Biopsy/Polyp (ANTRUM BX) Procedures: HE Stain/4, Gross/Micro L4/2 Patient: Te Curtis [id number] (Continued) Specimen: Received: 07/14/21 (Continued) Microscopic Description A. Two glass slides with H E stained material have been examined. The microscopic findings support the above pathologic diagnosis. B. Two glass slides with H E stained material and one IHC stained slide have been examined. The microscopic findings support the above pathologic diagnosis. ANALYTE SPECIFIC REAGENT (ASR) DISCLAIMER: The use of one or more reagents in the above tests is regulated as an analyte specific reagent (ASR). The performance characteristics were determined by the Laboratory of [facility]. Immunohistochemistry assays have not been validated on decalcified tissue. Results should be interpreted with caution given the possibility of false negative results on decalcified specimens. They have not been cleared by the [place] Food and Drug Administration. The FDA has determined that such clearance or approval is not necessary. CPT Codes 40564?2, 51525 Specimen: [id number] Received: 07/14/21 Status: DORIS Jacques Num: [id number] Spec Type: Surgical Subm Dr: Mauricio Stafford MD Tissues: A Duodenum - Biopsy (DUODENAL BX) B Stomach - Biopsy/Polyp (ANTRUM BX) Procedures: HE Stain/4, Gross/Micro L4/2 Patient: Te Curtis [id number] (Continued) (more content not included)... Normal [facility] COVID-19 FRMCon 07-12-2021 SARS-CoV-2 (COVID-19) RNA SILVANO+probe Ql (Unsp spec) Negative Normal Negative [facility] Comment on above: Order Comment: Healt hcare Worker?: N Result Comment: Testing for SARS-CoV-2 by RT-PCR This test was developed and its performance characteristics determined by [employer] ([employer]) and validated at the [facility]. This test has not been FDA cleared or approved. This test has been authorized by FDA under an Emergency Use Authorization (EUA). This test has been validated in accordance with the FDA's Guidance Document (Policy for Diagnostics Testing in Laboratories Certified to Perform High Complexity Testing under CLIA prior to Emergency Use Authorization for Coronavirus Disease-2019 during the Public Health Emergency) issued on July 24, 2019. This test is only authorized for the duration of time the declaration that circumstances exist justifying the authorization of the emergency use of in vitro diagnostic tests for detection of SARS-CoV-2 virus and/or diagnosis of COVID-19 infection under section 564(b)(1) of the Act, 21 U.S.C. 360bbb-3(b)(1), unless the authorization is terminated or revoked sooner. PERFORMED BY: [facility] [address] [place] [address] PATHOLOGIST TEXTILE SCIENCE TECHNICIAN GLORIA CAMARGO M.D. Performed By: #### C OVID 19 [facility] #### [facility] [address] CBC AUTO DIFFon 06-30-2021 BASO # 0.0 103/ul Normal 0.0-0.1 [facility] Comment on above: Performed By: #### C MP #### [facility] [address] [address] [address] Johan Rosenberg Basophils/100 WBC (Bld) 0.4 % Normal 0.2-2.0 [facility] Comment on above: Performed By: #### C MP #### [facility] [address] [address] [address] Johan Rosenberg EO # 0.3 103/ul Normal 0.0-0.7 [facility] Comment on above: Performed By: #### C MP #### [facility] [address] [address] [address] Johan Rosenberg Eosinophils/100 WBC (Bld) 6.1 % Normal 0.9-7.0 [facility] Comment on above: Performed By: #### C MP #### [facility] [address] [place] [address] Dr. Johan Rosenberg Erythrocyte distribution width (RBC) [Ratio] 13.8 % Normal 11.0-15.0 [facility] Comment on above: Performed By: #### C MP #### [facility] [address] [place] [address] Dr. Johan Rosenberg Hematocrit (Bld) [Volume fraction] 40.7 % Critically low 42.0-54.0 [facility] Comment on above: Performed By: #### C MP #### [facility] [address] [place] [address] Dr. Johan Rosenberg Hemoglobin (Bld) [Mass/Vol] 13.1 g/dL Critically low 14.0-18.0 [facility] Comment on above: Performed By: #### C MP #### [facility] [address] [place] [address] Dr. Johan Rosenberg IG # 0.01 10e3/ul Normal 0.00-0.03 [facility] Comment on above: Performed By: #### C MP #### [facility] [address] [place] [address] Dr. Johan Rosenberg IG % 0.2 % Normal 0.0-0.5 [facility] Comment on above: Performed By: #### C MP #### [facility] [address] [address] [address] Johan Rosenberg LYMPH # 1.6 103/ul Normal 1.2-3.8 [facility] Comment on above: Performed By: #### C MP #### [facility] [address] [place] [address] Dr. Johan Rosenberg Lymphocytes/100 WBC (Bld) 28.4 % Normal 20.5-60.0 [facility] Comment on above: Performed By: #### C MP #### [facility] [address] [place] [address] Dr. Johan Rosenberg MCH (RBC) [Entitic mass] 28.5 pg Normal 25.9-34.0 [facility] Comment on above: Performed By: #### C MP #### [facility] [address] [place] [address] Dr. Johan Rosenberg MCHC (RBC) [Mass/Vol] 32.2 g/dL Normal 29.9-35.2 [facility] Comment on above: Performed By: #### C MP #### [facility] [address] [place] [address] Dr. Johan Rosenberg MCV (RBC) [Entitic vol] 88.5 fL Normal 80.0-94.0 [facility] Comment on above: Performed By: #### C MP #### [facility] [address] [place] [address] Dr. Johan Rosenberg MONO # 0.7 103/ul Normal 0.3-0.8 [facility] Comment on above: Performed By: #### C MP #### [facility] [address] [place] [address] Dr. Johan Rosenberg Monocytes/100 WBC (Bld) 12.1 % Critically high 1.7-12.0 [facility] Comment on above: Performed By: #### C MP #### [facility] [address] [place] [address] Dr. Johan Rosenberg NEUT # 2.9 103/ul Normal 1.4-6.5 [facility] Comment on above: Performed By: #### C MP #### [facility] [address] [address] [address] Johan Rosenberg Neutrophils/100 WBC (Bld) 52.8 % Normal 43.0-75.0 [facility] Comment on above: Performed By: #### C MP #### [facility] [address] [address] [address] Johan Rosenberg Platelet mean volume (Bld) [Entitic vol] 10.0 fL Normal 9.5-13.5 [facility] Comment on above: Performed By: #### C MP #### [facility] [address] [address] [address] Johan Rosenberg PLT 224 103/ul Normal 150-450 [facility] Comment on above: Performed By: #### C MP #### [facility] [address] [address] [address] Johan Rosenberg RBC 4.60 106/ul Critically low 4.70-6.10 [facility] Comment on above: Performed By: #### C MP #### [facility] [address] [address] [address] Johan Rosenberg WBC 5.5 103/ul Normal 4.0-11.0 [facility] Comment on above: Performed By: #### C MP #### [facility] [address] [address] [address] Johan Rosenberg [facility] GLYCOHEMOGLOBIN A1Con 06-30-2021 Glucose [Mass/Vol] 111 mg/dL Normal [facility] Comment on above: Performed By: #### H FPFA1C #### [facility] [address] [address] [address] Johan Rosenberg HbA1c (Bld) [Mass fraction] 5.5 % Normal <=6.0 [facility] Comment on above: Performed By: #### H FPFA1C #### [facility] [address] [address] [address] [facility]-2021 Albumin [Mass/Vol] 3.9 g/dL Normal 3.5-5.0 [facility] Comment on above: Performed By: #### C MP #### [facility] [address] [place] [address] Dr. Johan Rosenberg Albumin/Globulin [Mass ratio] 1.3 {ratio} Normal [facility] Comment on above: Performed By: #### C MP #### [facility] [address] [place] [address] Dr. Johan Rosenberg ALP [Catalytic activity/Vol] 107 U/L Normal 38-126 [facility] Comment on above: Performed By: #### C MP #### [facility] [address] [place] [address] Dr. Johan Rosenberg ALT [Catalytic activity/Vol] 32 U/L Normal 21-72 [facility] Comment on above: Performed By: #### C MP #### [facility] [address] [place] [address] Dr. Johan Rosenberg AST [Catalytic activity/Vol] 30 U/L Normal 17-59 [facility] Comment on above: Performed By: #### C MP #### [facility] [address] [place] [address] Dr. Johan Rosenberg Bilirubin [Mass/Vol] 0.6 mg/dL Normal 0.2-1.3 [facility] Comment on above: Performed By: #### C MP #### [facility] [address] [place] [address] Dr. Johan Rosenberg Calcium [Mass/Vol] 8.8 mg/dL Normal 8.4-10.2 [facility] Comment on above: Performed By: #### C MP #### [facility] [address] [place] [address] Dr. Johan Rosenberg Chloride [Moles/Vol] 105 mmol/L Normal 98-107 [facility] Comment on above: Performed By: #### C MP #### [facility] [address] [place] [address] Dr. Johan Rosenberg CHOL-HDL RATIO NORM SEE BELOW Normal [facility] Comment on above: Result Comment: 3.3 - 4.4 LOW RISK 4.4 - 7.1 AVERAGE RISK 7.1 - 11.0 MODERATE RISK >11.0 HIGH RISK Performed By: #### C MP #### [facility] [address] [address] [address] Johan Rosenberg Cholesterol [Mass/Vol] 144 mg/dL Normal <=200 [facility] Comment on above: Performed By: #### C MP #### [facility] [address] [address] [address] Johan Rosenberg Cholesterol in HDL [Mass/Vol] 50 mg/dL Normal [facility] Comment on above: Performed By: #### C MP #### [facility] [address] [address] [address] Johan Rosenberg Cholesterol in LDL [Mass/Vol] 73.8 mg/dL Normal [facility] Comment on above: Performed By: #### C MP #### [facility] [address] [place] [address] Dr. Johan Rosenberg Cholesterol.total/ Cholesterol in HDL [Mass ratio] 2.9 {ratio} Normal [facility] Comment on above: Performed By: #### C MP #### [facility] [address] [place] [address] Dr. Johan Rosenberg CO2 [Moles/Vol] 29.7 mmol/L Normal 22.0-30.0 [facility] Comment on above: Performed By: #### C MP #### [facility] [address] [place] [address] Dr. Johan Rosenberg Creatinine [Mass/Vol] 1.04 mg/dL Normal 0.66-1.25 [facility] Comment on above: Performed By: #### C MP #### [facility] [address] [place] [address] Dr. Johan Rosenberg Globulin (S) [Mass/Vol] 3.0 g/dL Normal [facility] Comment on above: Performed By: #### C MP #### [facility] [address] [place] [address] Dr. Johan Rosenberg Glucose [Mass/Vol] 110 mg/dL Critically high 74-106 T [facility] Comment on above: Performed By: #### C MP #### [facility] [address] [place] [address] Dr. Johan Rosenberg HDL NORMAL > or = 60 mg/dl - LO W CARDIOVASCULAR RISK <40 mg/dl - HIGH CARDIOVASCULAR RISK Normal [facility] Comment on above: Performed By: #### C MP #### [facility] [address] [address] [address] Johan Rosenberg LDL CALC NORMAL SEE BELOW Normal [facility] Comment on above: Result Comment: <100 mg/dl OPTIMAL 100 - 129 mg/dl NEAR OR ABOVE OPTIMAL 130 - 159 mg/dl BORDERLINE HIGH 160 - 189 mg/dl HIGH >190 mg/dl VERY HIGH Performed By: #### C MP #### [facility] [address] [address] [address] Johan Rosenberg Potassium [Moles/Vol] 4.4 mmol/L Normal 3.4-5.0 [facility] Comment on above: Performed By: #### C MP #### [facility] [address] [address] [address] Johan Rosenberg Protein [Mass/Vol] 6.9 g/dL Normal 6.1-8.2 [facility] Comment on above: Performed By: #### C MP #### [facility] [address] [address] [address] Johan Rosenberg Sodium [Moles/Vol] 140 mmol/L Normal 137-145 [facility] Comment on above: Performed By: #### C MP #### [facility] [address] [address] [address] Johan Rosenberg Triglyceride [Mass/Vol] 101 mg/dL Normal <=150 [facility] Comment on above: Performed By: #### C MP #### [facility] [address] [address] [address] Johan Rosenberg TSH 0.854 uIU/mL Normal 0.470-4.680 [facility] Comment on above: Performed By: #### C MP #### [facility] [address] [address] [address] Johan Rosenberg Urea nitrogen [Mass/Vol] 16.0 mg/dL Normal 9.0-20.0 [facility] Comment on above: Performed By: #### C MP #### [facility] [address] [place], [place] [address] Dr. Johan Rosenberg Urea nitrogen/Creatinin e [Mass ratio] 15.4 mg/mg Normal [facility] Comment on above: Performed By: #### C MP #### [facility] [address] [place], [place] [address] Dr. Johan Rosenberg VLDL CALC 20.2 mg/dL Normal [facility] Comment on above: Performed By: #### C MP #### [facility] [address] [place], [place] [address] Dr. Johan Rosenberg Vital Signs Date Time Vital Sign Value Performing Clinician Facility 10-26-2021 11:30-0400 Body height 177.8 cm Mauricio Stafford Other [facility] Other 10-26-2021 11:30-0400 Body mass index (BMI) [Ratio] 26.25 kg/m2 Mauricio Stafford Other [facility] Other 10-26-2021 11:30-0400 Body weight 83.01 kg Mauricio Stafford Other [facility] Other 10-26-2021 11:30-0400 Diastolic blood pressure 87 mm[Hg] Mauricio Stafford Other [facility] Other 10-26-2021 11:30-0400 Systolic blood pressure 137 mm[Hg] Mauricio Stafford Other [facility] Other Encounters Encounter Date Encounter Type Care Provider Facility Start: 03-19-2023 End: 03-19-2023 ambulatory Yesenia L Varghese [facility]: [facility] Start: 02-05-2023 End: 02-05-2023 ambulatory Yesenia L Varghese [facility]: [facility] Start: 01-16-2023 End: 01-16-2023 ambulatory NIYA DUGAN Facility:[facility] Start: 06-27-2022 End: 06-28-[address] KEEGAN PATRICIO . Facility: Start: 01-04-2022 End: 01-05-[address] LYDIA FLANAGAN . Facility:[facility] Start: 11-23-2021 End: 11-24-[address] KEEGAN PATRICIO . Facility:[facility] Start: 11-02-2021 End: 11-03-[address] KEEGAN PATRICIO . Facility:[facility] Start: 10-28-2021 End: 10-30-[address] KEEGAN PATRICIO . Facility:[facility] Start: 10-26-2021 End: 10-26-2021 ambulatory Mauricio Stafford Other [facility] Other Start: 10-26-2021 Office outpatient visit 15 minutes Mauricio Stafford [facility] Start: 10-05-2021 End: 10-05-2021 ambulatory Criss Huizar Other [facility] Other Start: 10-05-2021 Nursing evaluation o f patient and report Criss Huizar [facility] Start: 06-30-2021 End: 07-01-[address] KEEGAN PATRICIO . Facility: Procedures Date Procedure Procedure Detail Performing Clinician Start: 06-27-[address] JESSICA FLANAGAN . Comment on above: Performed By: #### C MP #### [facility] [address] [place] [address] Dr. Johan Rosenberg Start: 01-04-[address] JESSICA FLANAGAN . Comment on above: Performed By: #### P SAD #### [facility] [address] [place] [address] Dr. Johan Rosenberg Start: 06-30-[address] JESSICA FLANAGAN . Comment on above: Performed By: #### C MP #### [facility] [address] [place] [address] Dr. Johan Rosenberg Plan of Treatment Date Care Activity Detail Author Start: 01-24-2024 ambulatory Ambulatory Facility:[facility] Immunizations Immunization Date Immunization Notes Care Provider Fa cility 10-21-2013 tetanus toxoid, adsorbed Criss Huizar Other [facility] Other Payers Date Payer Category Payer Unknown [id number] 1957 Medicare [id number] 2.1 [id number] 1957 Self-pay [id number] 1957 Unknown [id number] 2.1 [id number] 1945 Unknown [id number] 2.16.84 [id number] 1945 Unknown [id number] 2.16.84 0.1.318505.3.579.2.593 1945 Unknown [id number] 2.16.84 0.1.810666.3.579.2.593 1945 Unknown [id number] 2.16.84 0.1.654538.3.579.2.593 1945 Unknown [id number] 2.16.8 40.1.699074.3.579.2.727 1945 Unknown [id number] 2.16.8 40.1.710220.3.579.2.727 1947 Unknown [id number] 2.16.8 40.1.544707.3.579.2.727 1945 Unknown [id number] 2.16.8 40.1.664437.3.579.2.727 Unknown [id number] 2.16.84 0.1.901349.3.579.2.593 Unknown [id number] 2.16.84 [id number] Social History Date Type Detail Facility Unknown if ever smoked [facility] Other Sex Assigned At Sex Assigned At Bir th [facility] Other Evaluation note 10-26-2021 Note Date & Type Note Facility 10-26-2021 Evaluation note Encounter Date Diagnosis Assessment Notes Oct, GERD (gastroesop hageal reflux disease) (ICD-10 - K21.9) Continue Omeprazole Take 2 Gaviscon at bedtime if needed RTO 6 months Oct, Hiatal hernia (ICD-10 - K44.9) Oct, Non-cardiac chest pain (ICD-10 - R07.89) [facility] Other Evaluation note 10-05-2021 Note Date & Type Note Facility 10-05-2021 Evaluation note Encounter Date Diagnosis Assessment Notes Sep, Travel advice encounter (ICD-10 - Z71.84) [facility] Other History general Narrative - Reported Note Date & Type Note Facility History general Narrative - Reported Type Medical History Hyperlipemia Surgical History hernia Surgical History colonoscopy Surgical History tonsillectomy and adenoidectomy Surgical History wisdom teeth Surgical History TERP, multiple cystoscopies Hospitalization History see above [facility] Other History general Narrative - Reported Note Date & Type Note Facility History general Narrative - Reported Type Medical History Hyperlipemia Surgical History hernia Surgical History tonsillectomy and adenoidectomy Surgical History wisdom teeth Surgical History TERP, multiple cystoscopies Hospitalization History see above [facility] Other Summary Purpose Family History No Family History Records FoundNo Family History Records FoundNo Family History Records Found Advance Directives No Advanced Directives Records FoundNo Advanced Directives Records FoundNo Advanced Directives Records Found Additional Source Comments (unrecognized sect ion and content) No Status Records FoundNo Status Records FoundNo Status Records Found INFORMATION SOURCE (unrecogn ized section and content) DATE CREATED AUTHOR 07/18/2021 [facility] DATE CREATED AUTHOR AUTHOR'S ORGANIZ ATION 06/29/2022 Luis Berg [facility] DATE CREATED AUTHOR AUTHOR'S ORGANIZ ATION 11/14/2023 [facility] REASON FOR VISIT (unrecogniz ed section and content) Covid test for travelPATIENT HERE FOR FOLLOW UP TO EGD ON 07-14-2021 FOR GERD. FOR RECORDS PERTAINING TO PATIENTS WHO ARE OR HAVE BEEN ENROLLED IN A CHEMICAL DEPENDENCY/SUBSTANCEABUSE PROGRAM, SOME INFORMATION MAY BE OMITTED. This clinical summary was aggregated from multiple sources. Caution should be exercised in using it in the provision of clinical care. This summary normalizes information from multiple sources, and as a consequence, information in this document may materially change the coding, format and clinical context of patient data. In addition, data may be omitted in some cases. CLINICAL DECISIONS SHOULD BE BASED ON THE PRIMARY CLINICAL RECORDS. [facility] [employer] [facility]. provides no warranty or guarantee of the accuracy or completeness of information in this document.
[2024-01-16 12:27] LABS: Prostate Specific Antigen Dx 1.56 ng/mL (<=4.00)
== END 2024-01-16 10:49 | disposition home or self-care (01) ==
LOC: LAB 10:50
PROVIDERS: PCP Nurse Practitioner; Visit Provider Physician Assistant
DX: N40.1 Benign prostatic hyperplasia with lower urinary tract symptoms (principal); Z80.42 Family history of malignant neoplasm of prostate
CPT/HCPCS: 36415; 84153

== ENCOUNTER 2024-08-25 06:44 | Outpatient (OUT) | payer MEDICARE, OTHER, SELFPAY | END 2024-08-25 06:45 | disposition home or self-care (01) | LOC: MRI 06:44 | PROVIDERS: PCP Nurse Practitioner; Visit Provider Nurse Practitioner | DX: S46.219A Strain of muscle, fascia and tendon of other parts of biceps, unspecified arm, initial encounter (principal); E66.3 Overweight; Z87.891 Personal history of nicotine dependence; Z68.27 Body mass index [BMI] 27.0-27.9, adult | CPT/HCPCS: 73221 ==